=== PATIENT | male | born 1960 | race African-American/Black ===

== ENCOUNTER 2017-03-17 21:08 | Emergency (ER) | payer OTHER ==
[2017-03-17 21:27] VITALS: BP 107/55; PULSE 86; TEMP 97.7; BMI 28.5
--- NOTE | 2017-03-17 22:24 | PDOC ---
History of Present Illness <Herber Franks - Last Filed: 03/17/17 23:58> - General History Source: Patient Exam Limitations: No Limitations - History of Present Illness Initial Comments: 03/17/17 23:02 The patient is a 56 year old male presenting with his , with a significant past medical history of HTN and enlarged prostate, who presents to the emergency department with dehydration and muscle cramps. 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 He describes his cramping as localized in his lower extremities, ranging from mild to moderate, with radiation up and down his leg. He notes that certain movements exacerbates his pain. He denies any kind of trauma. The patient was able to ambulate into the ED. The patient denies chest pain, shortness of breath, headache and dizziness. Denies fever, chills, nausea, vomit, diarrhea and constipation. Allergies: None Past surgical history: Bladder surgery Social history: No alcohol, tobacco or drug use reported <Lars Coy - Last Filed: 03/18/17 01:51> - General Chief Complaint: Heat Exhaustion Stated Complaint: PAIN Time Seen by Provider: 03/17/17 22:09 Past History - Past Medical History Anemia: No Asthma: No Cancer: No Cardiac Disorders: No CVA: No COPD: No CHF: No Dementia: No Diabetes: No GI Disorders: No Disorders: No HTN: Yes Hypercholesterolemia: No Liver Disease: No Suicide Attempt (Hx): No Seizures: No Thyroid Disease: No - Surgical History Abdominal Surgery: No Appendectomy: No Cardiac Surgery: No Cholecystectomy: No Lung Surgery: No Neurologic Surgery: No Orthopedic Surgery: Yes (R RTC REPAIR) - Psycho/Social/Smoking Cessation Hx Anxiety: No Suicidal Ideation: No Smoking Status: Yes Smoking History: Never smoked Have you smoked in the past 12 months: No Number of Cigarettes Smoked Daily: 0 Information on smoking cessation initiated: No Hx Alcohol Use: No Drug/Substance Use Hx: No Substance Use Type: None Hx Substance Use Treatment: Yes (COCAINE/MARIJUANA MANY YRS AGO) <Herber Franks - Last Filed: 03/17/17 23:58> <Lars Coy - Last Filed: 03/18/17 01:51> - Past Medical History Allergies/Adverse Reactions: Allergies Allergy/AdvReac Type Severity Reaction Status Date / Time No Known Drug Allergies Allergy Verified 08/24/16 10:18 Home Medications: Ambulatory Orders Lisinopril [Prinivil -] 20 mg PO DAILY 03/07/13 Cyclobenzaprine HCl [Flexeril -] 10 mg PO TID PRN #15 tablet 08/24/16 Naproxen [Naprosyn -] 500 mg PO BID #14 tablet 08/24/16 Tamsulosin HCl [Flomax] 0.4 mg PO DAILY 08/24/16 Review of Systems - Review of Systems Able to Perform ROS?: Yes Comments:: 03/17/17 23:02 CONSTITUTIONAL: (+) Dehydration. No fever, no chills, no fatigue EYES: No visual changes ENT: No ear pain, no sore throat CARDIOVASCULAR: No chest pain, no palpitations RESPIRATORY: No cough, no SOB GI: No abdominal pain, no nausea, no vomiting, no constipation, no diarrhea GENITOURINARY: No dysuria, no frequency, no hematuria MUSKULOSKELETAL: (+) Muscle cramps. No backpain, no joint pain, no myalgias SKIN: No rash NEURO: No headache <Lars Coy - Last Filed: 03/18/17 01:51> *Physical Exam - Vital Signs Last Vital Signs Temp Pulse Resp BP Pulse Ox 97.7 F 86 18 107/55 100 03/17/17 21:23 03/17/17 21:23 03/17/17 21:23 03/17/17 21:23 03/17/17 21:23 <Herber Franks - Last Filed: 03/17/17 23:58> - Vital Signs Last Vital Signs Temp Pulse Resp BP Pulse Ox 97.7 F 86 18 107/55 100 03/17/17 21:23 03/17/17 21:23 03/17/17 21:23 03/17/17 21:23 03/17/17 21:23 - Physical Exam Comments: 03/18/17 01:50 CONSTITUTIONAL: Well-appearing; well-nourished; in no apparent distress HEAD: Normocephalic; atraumatic EYES: PERRL; EOM intact ENMT: External appears normal; normal oropharynx NECK: Supple; non-tender; no cervical lymphadenopathy CARD: Normal S1, S2; no murmurs, rubs, or gallops RESP: Normal chest excursion with respiration; breath sounds clear and equal bilaterally; no wheezes, rhonchi, or rales ABD: Soft, non-distended; non-tender; no palpable organomegaly, no palpable hernias EXT: Normal ROM in all four extremities; non-tender to palpation; distal pulses intact SKIN: Warm, dry, no rash NEURO: No focal neurological deficiencies. <Lars Coy - Last Filed: 03/18/17 01:51> ED Treatment Course - LABORATORY CBC & Chemistry Diagram: 03/17/17 22:40 03/17/17 22:40 <Herber Franks - Last Filed: 03/17/17 23:58> - LABORATORY CBC & Chemistry Diagram: 03/17/17 22:40 03/17/17 22:40 <Lars Coy - Last Filed: 03/18/17 01:51> Medical Decision Making - Medical Decision Making 03/17/17 22:18 Patient is a 56 y/o male with hx/o htn and bph who presents with gen. weakness after working outside in the heat for the past 2 days. pt also c/o lower extr cramping for 2 days. in the ED, patient is awake and alert, nontoxic-appearing , afebrile and hemodynamically stable. I suspect heat exhaustion. Will aggressively hydrate, we'll obtain CBC/CMP/magnesium/UA. Will reassess. 03/17/17 23:58 Patient reassessed. Patient reports clinical improvement. CBC is within normal limit. CMP reveals mildly elevated creatinine at 1.6. Urinalysis within normal limit. Will discharge with follow-up for reevaluation of elevated creatinine with primary care physician. <Herber Franks - Last Filed: 03/17/17 23:58> *DC/Admit/Observation/Transfer - Attestations Physician Attestion: 03/17/17 23:52 The documentation was prepared by the scribe under my direct supervision. I have reviewed the documentation which correctly represents the findings, medical decision-making and critical action taken by me. <Herber Franks - Last Filed: 03/17/17 23:58> - Attestations Scribe Attestion: 03/17/17 23:03 Documentation prepared by Lars Coy, acting as medical research associate for Herber Franks MD <Lars Coy - Last Filed: 03/18/17 01:51> Diagnosis at time of Disposition: Weakness, Dehydration, Leg cramping - Discharge Dispostion Disposition: HOME Condition at time of disposition: Stable - Referrals Referrals: Duglas Russell MD [Primary Care Provider] - - Patient Instructions Printed Discharge Instructions: DI for Dehydration -- Adult
[2017-03-17] MEDS ORDERED: SODIUM CHLORIDE 1,000 ML IV STA (22:28)
[2017-03-17 22:53] LABS: URINE APPEARANCE CLEAR; URINE BILIRUBIN NEGATIVE (NEGATIVE); URINE BLOOD NEGATIVE (NEGATIVE); URINE COLOR STRAW; URINE GLUCOSE (UA) NEGATIVE (NEGATIVE); URINE KETONE NEGATIVE (NEGATIVE); URINE LEUK ESTERASE NEGATIVE (NEGATIVE); URINE NITRITE NEGATIVE (NEGATIVE); URINE PROTEIN NEGATIVE (NEGATIVE); URINE UROBILINOGEN NEGATIVE E.U./dl (0.2-1.0)
[2017-03-17 22:59] LABS: BASOPHIL 0.7 % (0-2.0); EOSINOPHIL 1.9 % (0-4.5); MCH 30.7 pg (25.7-33.7); MCHC 34.1 g/dl (32.0-35.9); MEAN PLT VOLUME 7.8 fl (7.5-11.1); NEUTROPHILS 43.5 % (42.8-82.8); PLATELET COUNT 226 K/MM3 (134-434); RDW 15.7 % (11.9-15.9); WHITE BLOOD COUNT 5.9 K/mm3 (4.0-10.0)
[2017-03-17 23:17] LABS: ALBUMIN 4.1 g/dl (3.4-5.0); BILIRUBIN,TOTAL 1.6 mg/dL (0.2-1.0); CALCIUM 8.8 mg/dL (8.5-10.1); COCKROFT - GAULT 71.1; CREATININE 1.6 mg/dL (0.7-1.3); MAGNESIUM 2.4 mg/dL (1.8-2.4); TOT PROT 6.9 g/dl (6.4-8.2)
== END 2017-03-18 00:05 | disposition home or self-care (01) ==
LOC: SUPCPDRO 21:08 → JER 21:08
PROC: 3E0337Z Introduction of Electrolytic and Water Balance Substance into Peripheral Vein, Percutaneous Approach (ICD-10-PCS; principal; 2017-03-17)
DX: E86.0 Dehydration (principal); T67.5XXA Heat exhaustion, unspecified, initial encounter
CPT/HCPCS: 36415; 80053; 81003; 83735; 85025; 96360; 99283-25

== ENCOUNTER 2017-04-05 05:57 | Emergency (ER) | payer OTHER ==
[2017-04-05 06:16] VITALS: BMI 26.4
[2017-04-05] MEDS ORDERED: ASPIRIN 81 MG CHEWABLE TABLETS PO ONE (06:24)
--- NOTE | 2017-04-05 06:24 | PDOC ---
History of Present Illness - General History Source: Patient Exam Limitations: No Limitations - History of Present Illness Initial Comments: 04/05/17 06:33 The patient is a 56 year old male with significant past medical history of hypertension who presents to the ED for 1 day of chest pain. Patient reports he developed chest pain yesterday around 5pm. He describes his chest pain as a pressure-like sensation that radiates up the right side of the neck. Denies lightheadedness, diaphoresis, palpitations, SOB, shoulder pain, arm pain, leg swelling, nausea, or vomiting. He also has complaints of a concomitant headache. Patient admits to occasional tobacco use and cocaine use. States his last cocaine use was 2 days ago. The patient denies fever, chills, cough, abdominal pain, and diarrhea. Allergies: NKDA Social History: Occasional tobacco use. Cocaine use. Past Surgical History: Right RTC repair PCP: Dr. Duglas Russell <Emilia Ling - Last Filed: 04/05/17 06:34> - General History Source: Patient <Lars Marques - Last Filed: 04/05/17 19:31> - General Chief Complaint: Chest Pain Stated Complaint: CHEST PAIN Time Seen by Provider: 04/05/17 06:24 Past History <Emilia Ling - Last Filed: 04/05/17 06:34> - Past Medical History Anemia: No Asthma: No Cancer: No Cardiac Disorders: No CVA: No COPD: No CHF: No Dementia: No Diabetes: No GI Disorders: No Disorders: No HTN: Yes Hypercholesterolemia: No Liver Disease: No Suicide Attempt (Hx): No Seizures: No Thyroid Disease: No - Surgical History Abdominal Surgery: No Appendectomy: No Cardiac Surgery: No Cholecystectomy: No Lung Surgery: No Neurologic Surgery: No Orthopedic Surgery: Yes (R RTC REPAIR) - Psycho/Social/Smoking Cessation Hx Anxiety: No Suicidal Ideation: No Smoking Status: Yes Smoking History: Former smoker Have you smoked in the past 12 months: No Number of Cigarettes Smoked Daily: 0 Information on smoking cessation initiated: No Hx Alcohol Use: No Drug/Substance Use Hx: No Substance Use Type: None Hx Substance Use Treatment: Yes (COCAINE/MARIJUANA MANY YRS AGO) <Lars Marques - Last Filed: 04/05/17 19:31> - Past Medical History Allergies/Adverse Reactions: Allergies Allergy/AdvReac Type Severity Reaction Status Date / Time No Known Drug Allergies Allergy Verified 04/05/17 06:13 Home Medications: Ambulatory Orders Lisinopril [Prinivil -] 20 mg PO DAILY 03/07/13 Review of Systems - Review of Systems Able to Perform ROS?: Yes Comments:: 04/05/17 06:33 CONSTITUTIONAL: Absent: fever, no chills, no fatigue EYES: Absent: visual changes ENT: Absent: ear pain, no sore throat CARDIOVASCULAR: +chest pain radiating up the right side of the neck Absent: no palpitations RESPIRATORY: Absent: cough, no SOB GI: Absent: abdominal pain, no nausea, no vomiting, no constipation, no diarrhea GENITOURINARY: Absent: dysuria, no frequency, no hematuria MUSCULOSKELETAL: Absent: back pain, no arthralgia SKIN: Absent: rash NEURO: +headache <Emilia Ling - Last Filed: 04/05/17 06:34> *Physical Exam - Vital Signs Last Vital Signs Temp Pulse Resp BP Pulse Ox 97.9 F 83 18 112/83 100 04/05/17 06:14 04/05/17 06:14 04/05/17 06:14 04/05/17 06:14 04/05/17 06:14 - Physical Exam Comments: 04/05/17 06:33 GENERAL: Well-appearing, well-nourished. No apparent distress. HEENT: Normocephalic, atraumatic. PERRL, EOM intact. CARDIOVASCULAR: Normal S1, S2. Regular rate and rhythm. PULMONARY: Clear to auscultation bilaterally. ABDOMEN: Soft, non-distended, non-tender. EXTREMITIES: Normal ROM in all four extremities. No gross deformities. SKIN: Warm, dry. No rash NEUROLOGICAL: No focal neurological deficits. <Emilia Ling - Last Filed: 04/05/17 06:34> - Vital Signs Last Vital Signs Temp Pulse Resp BP Pulse Ox 97.9 F 83 18 112/83 100 04/05/17 06:14 04/05/17 06:14 04/05/17 06:14 04/05/17 06:14 04/05/17 06:14 <Lars Marques - Last Filed: 04/05/17 19:31> Heart Score/ECG Review - ECG Impressions Comment:: 04/05/17 06:33 NSR @85bpm Cannot r/o anterior infarct, age undetermined Abnormal ECG <Emilia Ling - Last Filed: 04/05/17 06:34> ED Treatment Course - LABORATORY CBC & Chemistry Diagram: 04/05/17 06:34 04/05/17 06:34 <Lars Marques - Last Filed: 04/05/17 19:31> Medical Decision Making - Medical Decision Making 04/05/17 19:31 Dr. Marques: The scribe's documentation has been prepared under my direction and personally reviewed by me in its entirery. I confirm that the note above accurately reflects all work, treatment, procedures, and medical decision making performed by me. <Lars Marques - Last Filed: 04/05/17 19:31> *DC/Admit/Observation/Transfer - Attestations Scribe Attestion: 04/05/17 06:34 Documentation prepared by Emilia Lnig, acting as medical oncologist for Lars Marques MD/. <Emilia Ling - Last Filed: 04/05/17 06:34> - Discharge Dispostion Admit: No <Lars Marques - Last Filed: 04/05/17 19:31> Diagnosis at time of Disposition: Cocaine abuse Chest pain Qualifiers: Chest pain type: unspecified Qualified Code(s): R07.9 - Chest pain, unspecified - Discharge Dispostion Disposition: HOME Condition at time of disposition: Improved - Referrals Referrals: Duglas Russell MD [Primary Care Provider] - - Patient Instructions Printed Discharge Instructions: DI for Atypical Chest Pain Additional Instructions: Stop using cocaine. Return to the emergency department immediately with ANY new, persistent or worsening symptoms including recurrent chest pain, shortness of breath or other concerns. You MUST call and follow up with your doctor tomorrow for further evaluation of your symptoms. Results were discussed with you. Please make sure your doctor reviews the results of your emergency evaluation.
[2017-04-05] MEDS ORDERED: LORAZEPAM CARPU-JECT 2 MG/ML DISP.SYRIN IVPUSH ONE (06:27)
[2017-04-05] MEDS ORDERED: ASPIRIN 81 MG CHEWABLE TABLETS ONE (06:35)
[2017-04-05] MEDS ORDERED: LORAZEPAM CARPU-JECT 2 MG/ML DISP.SYRIN ONE (06:36)
[2017-04-05 06:44] LABS: BASOPHIL 0.3 % (0-2.0); EOSINOPHIL 0.5 % (0-4.5); MCH 30.6 pg (25.7-33.7); MCHC 33.5 g/dl (32.0-35.9); MEAN CELL VOLUME 91.2 fl (80-96); MEAN PLT VOLUME 7.6 fl (7.5-11.1); NEUTROPHILS 77.3 % (42.8-82.8); PLATELET COUNT 234 K/MM3 (134-434); RDW 15.3 % (11.9-15.9); WHITE BLOOD COUNT 8.6 K/mm3 (4.0-10.0)
[2017-04-05 06:57] LABS: INR 1.2 (0.82-1.09); PROTHROMBIN TIME (PATIENT) 13.3 SEC (9.98-11.88)
[2017-04-05 07:21] LABS: ALBUMIN 3.5 g/dl (3.4-5.0); ANION GAP 9 (8-16); BILIRUBIN,TOTAL 1.6 mg/dL (0.2-1.0); CALCIUM 8.5 mg/dL (8.5-10.1); CO2 24 mmol/L (21-32); COCKROFT - GAULT 96.04; CREATININE 1.1 mg/dL (0.7-1.3); GLUCOSE,RANDOM 106 mg/dL (74-106); MAGNESIUM 2.1 mg/dL (1.8-2.4); SGOT/AST 20 U/L (15-37); SGPT/ALT 26 U/L (12-78); TOT PROT 6.2 g/dl (6.4-8.2)
[2017-04-05 07:24] LABS: ALK PHOS 48 U/L (45-117); TROPONIN I < 0.02 ng/ml (0.00-0.05)
--- NOTE | 2017-04-05 08:07 | PDOC ---
*Physical Exam - Vital Signs Last Vital Signs Temp Pulse Resp BP Pulse Ox 98 F 75 17 110/77 100 04/05/17 07:55 04/05/17 07:55 04/05/17 07:55 04/05/17 07:55 04/05/17 07:55 ED Treatment Course - LABORATORY CBC & Chemistry Diagram: 04/05/17 06:34 04/05/17 06:34 - ADDITIONAL ORDERS Additional order review: Laboratory Results 04/05/17 04/05/17 06:34 06:34 INR 1.20 H Sodium 143 Potassium 3.9 Chloride 110 H Carbon Dioxide 24 Anion Gap 9 BUN 11 D Creatinine 1.1 D Creat Clearance w eGFR > 60 Random Glucose 106 Calcium 8.5 Magnesium 2.1 Total Bilirubin 1.6 H AST 20 ALT 26 Alkaline Phosphatase 48 Creatine Kinase 362 H Troponin I < 0.02 Total Protein 6.2 L Albumin 3.5 04/05/17 06:34 RBC 4.38 MCV 91.2 MCHC 33.5 RDW 15.3 MPV 7.6 Neutrophils % 77.3 D Lymphocytes % 15.7 D Monocytes % 6.2 Eosinophils % 0.5 Basophils % 0.3 - Medications Given in the ED: ED Medications Discontinued Medications Generic Name Dose Route Start Last Admin Trade Name Freq PRN Reason Stop Dose Admin Aspirin 162 mg 04/05/17 06:24 04/05/17 06:43 Asa - PO 04/05/17 06:25 162 mg ONCE ONE Administration Lorazepam 1 mg 04/05/17 06:27 04/05/17 06:43 Ativan Injection - IVPUSH 04/05/17 06:28 1 mg ONCE ONE Administration Medical Decision Making - Medical Decision Making 04/05/17 08:06 56y M hx of htn, cocaine use presents with 1 day of pressure like chest pain w/ o saucedo, sob, n/v, diaphoresis, exertional symptoms. pts exam unremarkable pt s/p asa, ativan ekg nonischemic labs/trop neg x 1 will obtain second trop wlil reassess 04/05/17 13:36 pts trop neg x 2 ekg unchanged pt feeling improved will dc the pt with pm dfu return precautions were discussed I discussed the physical exam findings, ancillary test results and final diagnoses with the patient. I answered all of the patient's questions. The patient was satisfied with the care received and felt comfortable with the discharge plan and treatment plan. The patient will call their primary care physician within 24 hours to arrange follow-up and will return to the Emergency Department with any new, persistent or worsening symptoms. *DC/Admit/Observation/Transfer Diagnosis at time of Disposition: Cocaine abuse Chest pain Qualifiers: Chest pain type: unspecified Qualified Code(s): R07.9 - Chest pain, unspecified - Discharge Dispostion Disposition: HOME Condition at time of disposition: Improved Admit: No - Referrals Referrals: Duglas Russell MD [Primary Care Provider] - - Patient Instructions Printed Discharge Instructions: DI for Atypical Chest Pain Additional Instructions: Stop using cocaine. Return to the emergency department immediately with ANY new, persistent or worsening symptoms including recurrent chest pain, shortness of breath or other concerns. You MUST call and follow up with your doctor tomorrow for further evaluation of your symptoms. Results were discussed with you. Please make sure your doctor reviews the results of your emergency evaluation. - Post Discharge Activity
--- NOTE | 2017-04-05 11:30 | EKG ---
Test Reason : Blood Pressure : / mmHG Vent. Rate : 085 BPM Atrial Rate : 085 BPM P-R Int : 174 ms QRS Dur : 080 ms QT Int : 368 ms P-R-T Axes : 051 014 029 degrees QTc Int : 437 ms NORMAL SINUS RHYTHM CANNOT RULE OUT ANTERIOR INFARCT , AGE UNDETERMINED ABNORMAL ECG WHEN COMPARED WITH ECG OF 20-MAR-2015 18:55, NO SIGNIFICANT CHANGE WAS FOUND Confirmed by MAXIMILIANO LAWLER, MONALISA ([id number]) on 04/05/2017 11:30:06 AM Referred By: Confirmed By:MONALISA VIERA MD
[2017-04-05 12:30] LABS: TROPONIN I < 0.02 ng/ml (0.00-0.05)
[2017-04-05 14:19] VITALS: BP 119/71; PULSE 80; TEMP 98.2
--- NOTE | 2017-04-06 10:35 | EKG ---
Test Reason : Blood Pressure : / mmHG Vent. Rate : 070 BPM Atrial Rate : 070 BPM P-R Int : 178 ms QRS Dur : 088 ms QT Int : 402 ms P-R-T Axes : 055 030 036 degrees QTc Int : 434 ms NORMAL SINUS RHYTHM NORMAL ECG WHEN COMPARED WITH ECG OF 05-APR-2017 06:09, NO SIGNIFICANT CHANGE WAS FOUND Confirmed by ARLINE BOYER MD ([id number]) on 04/06/2017 10:34:40 AM Referred By: Confirmed By:ARLINE BOYER MD
== END 2017-04-05 14:19 | disposition home or self-care (01) ==
LOC: JER 05:57
PROC: 3E033NZ Introduction of Analgesics, Hypnotics, Sedatives into Peripheral Vein, Percutaneous Approach (ICD-10-PCS; principal; 2017-04-05)
DX: F14.10 Cocaine abuse, uncomplicated (principal); R07.89 Other chest pain
CPT/HCPCS: 36415; 71010-TC; 80053; 82550; 82553; 83735; 84484; 85025; 85610; 93005; 93010; 96374; 99285-25

== ENCOUNTER 2017-08-17 19:02 | Emergency (ER) | payer OTHER ==
[2017-08-17 19:22] VITALS: BP 128/90; PULSE 76; TEMP 97.9; BMI 28.5
[2017-08-17] MEDS ORDERED: IBUPROFEN 600 MG TABLET (FP) PO ONE ×2 (20:54→21:01)
--- NOTE | 2017-08-17 20:55 | PDOC ---
History of Present Illness - General Chief Complaint: Injury Stated Complaint: HAND INJURY Time Seen by Provider: 08/17/17 20:47 History Source: Patient Exam Limitations: No Limitations - History of Present Illness Initial Comments: 08/17/17 22:18 My chief complaint: Knee over right fourth finger area History of present illness: He is a 56-year-old male with a history of hypertension here today after patient's right hand was twisted quickly using a drill at work today. Patient reports that he feels pain in his right fourth finger that radiates up his right hand. Patient denies any numbness of hand patient denies any other pain. Patient has slight deformity of his right fourth MCP joint noted. 08/17/17 22:23 Occurred: reports: this afternoon Severity: reports: moderate (left hand ) Pain Location: reports: upper extremity (left hand over 4th mcp jt ) Method of Injury: Yes: other (left hand twisted quickly when using a drill at work today ) Modifying Factors: improves with: None Loss of Consciousness: no loss of consciousness Associated Symptoms (Fall): other (pain over left 4th mcp jt with decreased range of motion of joint) Past History - Past Medical History Allergies/Adverse Reactions: Allergies Allergy/AdvReac Type Severity Reaction Status Date / Time No Known Drug Allergies Allergy Verified 08/17/17 19:19 Home Medications: Ambulatory Orders Lisinopril [Prinivil -] 20 mg PO DAILY 03/07/13 Anemia: No Asthma: No Cancer: No Cardiac Disorders: No CVA: No COPD: No CHF: No Dementia: No Diabetes: No GI Disorders: No Disorders: No HTN: Yes Hypercholesterolemia: No Liver Disease: No Seizures: No Thyroid Disease: No - Surgical History Abdominal Surgery: No Appendectomy: No Cardiac Surgery: No Cholecystectomy: No Lung Surgery: No Neurologic Surgery: No Orthopedic Surgery: Yes (R RTC REPAIR) - Suicide/Smoking/Psychosocial Hx Smoking Status: Yes Smoking History: Former smoker Have you smoked in the past 12 months: No Number of Cigarettes Smoked Daily: 0 Information on smoking cessation initiated: No Hx Alcohol Use: No Drug/Substance Use Hx: No Substance Use Type: None Hx Substance Use Treatment: Yes (COCAINE/MARIJUANA MANY YRS AGO) Trauma Specific PMHX - Complaint Specific PMHX Back Injury: Yes Neck Injury: Yes Review of Systems - Review of Systems Able to Perform ROS?: Yes Constitutional: No: Symptoms Reported HEENTM: No: Symptoms Reported Respiratory: No: Symptoms reported Cardiac (ROS): No: Symptoms Reported ABD/GI: No: Symptoms Reported Musculoskeletal: Yes: Joint Pain (pain rt. 4th mcp jt., decreased range of motion rt. mcp jt). No: Joint Swelling Integumentary: No: Symptoms Reported Neurological: No: Symptoms reported *Physical Exam - Vital Signs Last Vital Signs Temp Pulse Resp BP Pulse Ox 97.9 F 76 16 128/90 08/17/17 19:21 08/17/17 19:21 08/17/17 19:21 08/17/17 19:21 - Physical Exam General Appearance: Yes: Appropriately Dressed Comments:: 08/17/17 22:15 radial pulse rt. 4 + Extremity: positive: Normal Capillary Refill, Tender (rt. 4th mcp jt ). negative: Normal Inspection (4th mcp jt deformity noted), Normal Range of Motion (rt. 4th mcp jt slightly decreased, full range of motion rt. 4th pip, dip jt and all other joints rt. hand ) Integumentary: positive: Normal Color. negative: Erythema, Swelling, Bruising Neurologic: positive: Normal Response, Respond to painful stimul (rt. hand and all digits ), Responsive. negative: Numbness, Sensory Deficit (rt hand & all digits) Procedures - Consent Consent obtained: From Patient - Splinting Splint Location: Right: Hand Pre-Proc Neuro Vasc Exam: normal Hand-Made Type: orthoglass Splint Type: Yes: Wrist (rt. hand ) Post-Proc Neuro Vasc Exam: normal Donovan Bandage: 3" Complications: No Post splint xray: No Medical Decision Making - Medical Decision Making 08/17/17 22:18 08/17/17 22:24 He is a 56-year-old male with a history of hypertension here today after patient 's right hand was twisted quickly using a drill at work today. Patient reports that he feels pain in his right fourth finger that radiates up his right hand. Patient denies any numbness of hand patient denies any other pain. Patient has slight deformity of his right fourth MCP joint noted. r/o fracture rt. 4th metacarpal jt PLAN: xray right hand fracture of rt. 4th mcp jt ibuprofen 600 mg po now orthoglass splint rt. hand applied follow up with ortho 08/17/17 22:26 *DC/Admit/Observation/Transfer Diagnosis at time of Disposition: Fracture of metacarpal bone of right hand - Discharge Dispostion Disposition: HOME Condition at time of disposition: Stable - Referrals Referrals: Balta Rodriguez MD [Staff Physician] - Duglas Russell MD [Primary Care Provider] - - Patient Instructions Additional Instructions: Apply ice to right hand every hour or 2 for 15 minutes on top of Ortho-Glass splint Follow up with orthopedist tomorrow Return to emergency room if any numbness of your right hand or swelling or any new symptoms develop Take ibuprofen as needed as directed by final dressing cutter Patient voiced understanding of discharge instructions and all questions were answered
== END 2017-08-17 22:23 | disposition home or self-care (01) ==
LOC: JERFT 19:02
PROC: 2W3CX1Z Immobilization of Right Lower Arm using Splint (ICD-10-PCS; principal; 2017-08-17)
DX: S62.394A Other fracture of fourth metacarpal bone, right hand, initial encounter for closed fracture (principal); X50.1XXA Overexertion from prolonged static or awkward postures, initial encounter; Y93.H3 Activity, building and construction; Y92.69 Other specified industrial and construction area as the place of occurrence of the external cause; Y99.0 Civilian activity done for income or pay; I10 Essential (primary) hypertension
CPT/HCPCS: 73130-TC-RT; 99281-25

== ENCOUNTER 2018-01-07 15:58 | Emergency (ER) | payer OTHER ==
[2018-01-07 16:12] VITALS: PULSE 88; TEMP 97.5; BMI 28.5
[2018-01-07] MEDS ORDERED: ALBUTEROL SO4 2.5/IPRATROPIUM 0.5 INH SOL 3 ML VIAL.NEB. NEB ONE ×2 (17:10→17:14)
--- NOTE | 2018-01-07 17:10 | PDOC ---
History of Present Illness - General Chief Complaint: Respiratory Stated Complaint: COUGH Time Seen by Provider: 01/07/18 16:29 - History of Present Illness Initial Comments: 01/07/18 16:54 CHIEF COMPLAINT: cough, congestion HISTORY OF PRESENT ILLNESS: 57 yo M with hx of HTN presents to [facility] with chest tightness x 3 days. Patient reports that he feels like he has "a lot of stuff in my lungs" and has been coughing but unproductively. He denies any fever, chills, nausea, vomiting, diarrhea. No recent travel or sick contacts. PAST MEDICAL HISTORY: Denies past medical history FAMILY HISTORY: Denies SOCIAL HISTORY: Denies tobacco, alcohol, illicit drug use. SURGICAL HISTORY: Denies ALLERGIES: No known drug allergies REVIEW OF SYSTEMS General/Constitutional: Denies fever or chills. Denies weakness, weight change. HEENT: Denies change in vision. Denies ear pain or discharge. Denies sore throat. Cardiovascular: Denies chest pain or shortness of breath. Respiratory: Dry cough. Gastrointestinal: Denies nausea, vomiting, diarrhea or constipation. Denies rectal bleeding. Genitourinary: Denies dysuria, frequency, or change in urination. Musculoskeletal: Denies joint or muscle swelling or pain. Denies neck or back pain. Skin and breasts: Denies rash or easy bruising. Neurologic: Denies headache, vertigo, loss of consciousness, or loss of sensation. PHYSICAL EXAM General Appearance: Well-appearing, appropriately dressed. No apparent distress. HEENT: EOMI, PERRLA. No conjunctival pallor. No photophobia, scleral icterus. Respiratory/Chest: Dry cough, mild expiratory wheeze to R lower lobe. No shortness of breath, chest tenderness, respiratory distress, accessory muscle use. Cardiovascular: RRR. S1, S2. Gastrointestinal/Abdominal: Normal bowel sounds. Abdomen soft, non-distended. No tenderness or rebound tenderness. No organomegaly, pulsatile mass, guarding , hernia, hepatomegaly, splenomegaly. Musculoskeletal/Extremities: Normal inspection. FROM of all extremities, normal capillary refill. Pelvis Stable. No CVA tenderness. No tenderness to extremities, pedal edema, swelling, erythema or deformity. Integumentary: Appropriate color, dry, warm. 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 Fully oriented, alert. Appropriate mood/affect. Motor strength 5/5. No appreciable EOM palsy, facial droop or sensory deficit. Past History - Past Medical History Allergies/Adverse Reactions: Allergies Allergy/AdvReac Type Severity Reaction Status Date / Time No Known Drug Allergies Allergy Verified 01/07/18 16:12 Home Medications: Ambulatory Orders Lisinopril [Prinivil -] 20 mg PO DAILY 03/07/13 Albuterol Sulfate Inhaler - [Ventolin HFA Inhaler -] 1 - 2 inh PO Q4H PRN #1 inhaler 01/07/18 Azithromycin [Zithromax 250mg Tablets -] 250 mg PO ASDIR #6 tablet 01/07/18 Benzonatate [Tessalon Pearls -] 100 mg PO TID PRN #21 capsule 01/07/18 Anemia: No Asthma: No Cancer: No Cardiac Disorders: No CVA: No COPD: No CHF: No Dementia: No Diabetes: No GI Disorders: No Disorders: No HTN: Yes Hypercholesterolemia: No Liver Disease: No Seizures: No Thyroid Disease: No Other medical history: vertigo - Surgical History Abdominal Surgery: No Appendectomy: No Cardiac Surgery: No Cholecystectomy: No Lung Surgery: No Neurologic Surgery: No Orthopedic Surgery: Yes (R RTC REPAIR) - Suicide/Smoking/Psychosocial Hx Smoking Status: Yes Smoking History: Never smoked Have you smoked in the past 12 months: No Number of Cigarettes Smoked Daily: 0 Information on smoking cessation initiated: No Hx Alcohol Use: No Drug/Substance Use Hx: No Substance Use Type: None Hx Substance Use Treatment: Yes (COCAINE/MARIJUANA MANY YRS AGO) *Physical Exam - Vital Signs Last Vital Signs Temp Pulse Resp BP Pulse Ox 97.5 F L 88 18 98/61 100 01/07/18 16:09 01/07/18 16:09 01/07/18 16:09 01/07/18 16:09 01/07/18 16:09 ED Treatment Course - RADIOLOGY Radiology Studies Ordered: Category Date Time Status CHEST PA & LAT [RAD] Stat Radiology 01/07/18 16:50 Ordered *DC/Admit/Observation/Transfer Diagnosis at time of Disposition: Bronchitis - Discharge Dispostion Disposition: HOME Condition at time of disposition: Stable Admit: No - Prescriptions Prescriptions: Albuterol Sulfate Inhaler - [Ventolin HFA Inhaler -] 1 - 2 inh PO Q4H PRN #1 inhaler PRN Reason: Short Of Breath/Wheezing Azithromycin [Zithromax 250mg Tablets -] 250 mg PO ASDIR #6 tablet Benzonatate [Tessalon Pearls -] 100 mg PO TID PRN #21 capsule PRN Reason: Cough - Referrals Referrals: Duglas Russell MD [Primary Care Provider] - - Patient Instructions Printed Discharge Instructions: DI for Acute Bronchitis Additional Instructions: Please take medications as prescribed; complete the entire course of antibiotics even if your symptoms improve. If you develop any chest pain, palpitations, fever, chills, vomiting, or diarrhea, or any new or worsening symptoms, please return to the ER. - Post Discharge Activity
[2018-01-07 17:41] VITALS: BP 120/63
== END 2018-01-07 17:44 | disposition home or self-care (01) ==
LOC: JERFT 15:58
PROC: 3E0F7GC Introduction of Other Therapeutic Substance into Respiratory Tract, Via Natural or Artificial Opening (ICD-10-PCS; principal; 2018-01-07)
DX: J40 Bronchitis, not specified as acute or chronic (principal); I10 Essential (primary) hypertension
CPT/HCPCS: 71046-TC-FY; 94640; 99281-25

== ENCOUNTER 2018-04-03 02:23 | Emergency (ER) | payer OTHER ==
[2018-04-03 02:54] VITALS: BP 135/84; PULSE 67; TEMP 98.1; BMI 28.5
[2018-04-03] MEDS ORDERED: diazePAM 5 MG TABLET PO ONE (03:25)
[2018-04-03] MEDS ORDERED: KETOROLAC TROMETHAMINE 30 MG/1 ML VIAL IM ONE (03:25)
[2018-04-03] MEDS ORDERED: diazePAM 5 MG TABLET ONE (03:30)
[2018-04-03] MEDS ORDERED: KETOROLAC TROMETHAMINE 30 MG/1 ML VIAL ONE (03:30)
--- NOTE | 2018-04-03 04:29 | PDOC ---
History of Present Illness - General History Source: Patient Exam Limitations: No Limitations - History of Present Illness Initial Comments: 04/03/18 04:34 The patient is a 57 year old male with a significant PMH hypertension and cocaine use who presents to the emergency department with severe lower back pain. The patient reports that his back pain is constant and worsened with movement and deep breath. The patient states that his pain feels more muscular . 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 He denies any injury that he can recall. The patient reports that he was seen by his doctor yesterday by which he was given pain medication and an at home cream. The patient reports that he did not experience much relief when he used them. The patient denies any numbness, weakness, or tingling sensation in his extremities. He denies fever, chills, nausea, vomit, diarrhea ,constipation or urinary symptoms. He denies chest pain, shortness of breath, headache and dizziness. He denies any weight loss, travel, smoking or alcohol intake. The patient denies any other complaints. <Jessica Madrid - Last Filed: 04/03/18 04:34> <Joe Jean - Last Filed: 04/03/18 05:30> - General Chief Complaint: Back Pain Stated Complaint: BACK PAIN Time Seen by Provider: 04/03/18 03:14 Past History <Jessica Madrid - Last Filed: 04/03/18 04:34> - Past Medical History Anemia: No Asthma: No Cancer: No Cardiac Disorders: No CVA: No COPD: No CHF: No Dementia: No Diabetes: No GI Disorders: No Disorders: No HTN: Yes Hypercholesterolemia: No Liver Disease: No Seizures: No Thyroid Disease: No - Surgical History Abdominal Surgery: No Appendectomy: No Cardiac Surgery: No Cholecystectomy: No Lung Surgery: No Neurologic Surgery: No Orthopedic Surgery: Yes (R RTC REPAIR) - Suicide/Smoking/Psychosocial Hx Smoking Status: Yes Smoking History: Never smoked Have you smoked in the past 12 months: No Number of Cigarettes Smoked Daily: 0 Information on smoking cessation initiated: No Hx Alcohol Use: No Drug/Substance Use Hx: No Substance Use Type: None Hx Substance Use Treatment: Yes (COCAINE/MARIJUANA MANY YRS AGO) <Joe Jean - Last Filed: 04/03/18 05:30> - Past Medical History Allergies/Adverse Reactions: Allergies Allergy/AdvReac Type Severity Reaction Status Date / Time No Known Drug Allergies Allergy Verified 01/07/18 16:12 Home Medications: Ambulatory Orders Lisinopril [Prinivil -] 20 mg PO DAILY 03/07/13 Albuterol Sulfate Inhaler - [Ventolin HFA Inhaler -] 1 - 2 inh PO Q4H PRN #1 inhaler 01/07/18 Azithromycin [Zithromax 250mg Tablets -] 250 mg PO ASDIR #6 tablet 01/07/18 Benzonatate [Tessalon Pearls -] 100 mg PO TID PRN #21 capsule 01/07/18 Diazepam [Valium] 5 mg PO DAILY #2 tablet MDD 1 04/03/18 Review of Systems - Review of Systems Able to Perform ROS?: Yes Comments:: 04/03/18 04:34 Constitutional: No recent illness; no fever ENT: No sore throat Cardiovascular: No palpitations; no chest pain Pulmonary: No cough; no trouble breathing Gastrointestinal: No nausea; no vomiting; no diarrhea Genitourinary: No urinary problems; no hematuria Skin: No rash Lymph system: No swollen glands Musculoskeletal: (+)back pain. No joint swelling Neurological: No weakness; No numbness; No Headache; no vertigo; no lightheadedness Psychiatric:No anxiety; no depression ROS: A complete review of 10 out of 10 review of systems is taken and is negative apart from what is previously mentioned below and in the HPI. <Jessica Madrid - Last Filed: 04/03/18 04:34> *Physical Exam - Vital Signs Last Vital Signs Temp Pulse Resp BP Pulse Ox 98.1 F 67 19 135/84 98 04/03/18 02:43 04/03/18 02:43 04/03/18 02:43 04/03/18 02:43 04/03/18 02:43 - Physical Exam Comments: 04/03/18 04:34 Vitals: Triage vital signs reviewed General Appearance: No acute distress, well nourished, well developed Neck: Supple; No nuchal rigidity Chest Wall: Nontender Cardiac: Regular rate and rhythm, no murmurs, no rubs, no gallops Lungs: Clear to auscultation bilateral, good air movement bilaterally Abdomen: Soft, nondistended, normal bowel sounds, nontender to palpation Extremities: (+) Reproducible left upper back pain.Full range of motion to all extremities, no cyanosis, clubbing, or edema Skin: Warm and dry, no rashes or lesions, no rash, no petechiae Neuro: AOX3; Cranial Nerves 2-12 grossly intact, Strength intact to all extremities, Sensation intact to all extremities, gait normal Psych: Normal mood, normal affect <Jessica Madrid - Last Filed: 04/03/18 04:34> - Vital Signs Last Vital Signs Temp Pulse Resp BP Pulse Ox 98.1 F 67 19 135/84 98 04/03/18 02:43 04/03/18 02:43 04/03/18 02:43 04/03/18 02:43 04/03/18 02:43 <Joe Jean - Last Filed: 04/03/18 05:30> ED Treatment Course - Medications Given in the ED: ED Medications Discontinued Medications Generic Name Dose Route Start Last Admin Trade Name Freq PRN Reason Stop Dose Admin Diazepam 5 mg 04/03/18 03:25 04/03/18 03:39 Valium - PO 04/03/18 03:26 5 mg ONCE ONE Administration Ketorolac Tromethamine 30 mg 04/03/18 03:25 04/03/18 03:39 Toradol Injection - IM 04/03/18 03:26 30 mg ONCE ONE Administration <Jessica Madrid - Last Filed: 04/03/18 04:34> - RADIOLOGY Radiology Studies Ordered: Category Date Time Status CHEST PA & LAT [RAD] Stat Radiology 04/03/18 03:25 Ordered - Medications Given in the ED: ED Medications Discontinued Medications Generic Name Dose Route Start Last Admin Trade Name Freq PRN Reason Stop Dose Admin Diazepam 5 mg 04/03/18 03:25 04/03/18 03:39 Valium - PO 04/03/18 03:26 5 mg ONCE ONE Administration Ketorolac Tromethamine 30 mg 04/03/18 03:25 04/03/18 03:39 Toradol Injection - IM 04/03/18 03:26 30 mg ONCE ONE Administration <Joe Jean - Last Filed: 04/03/18 05:30> Medical Decision Making - Medical Decision Making 04/03/18 04:35 The patient is a 57 year old male with a significant PMH hypertension and cocaine use who presents to the emergency department with severe lower back pain. The patient reports that his back pain is constant and worsened with movement and deep breath. The patient states that his pain feels more muscular . 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 He denies any injury that he can recall. The patient reports that he was seen by his doctor yesterday by which he was given pain medication and an at home cream. The patient reports that he did not experience much relief when he used them. The patient denies any numbness, weakness, or tingling sensation in his extremities. He denies fever, chills, nausea, vomit, diarrhea ,constipation or urinary symptoms. He denies chest pain, shortness of breath, headache and dizziness. He denies any weight loss, travel, smoking or alcohol intake. The patient denies any other complaints. <Jessica Madrid - Last Filed: 04/03/18 04:34> - Medical Decision Making Reevaluation: 5:30 AM patient feels better after pain medication. No acute findings on x-ray. History examination most consistent with muscular skeletal upper back discomfort. No PE DVT risk factors. We'll discharge home on short course of Valium patient ready has ibuprofen at home patient recommended follow-up with his doctor in 1-2 days. Return to the emergency department for any severe worsening symptoms or for any concerns Findings, need for follow-up and strict return instructions discussed with patient. <Joe Jean - Last Filed: 04/03/18 05:30> *DC/Admit/Observation/Transfer - Attestations Scribe Attestion: 04/03/18 04:35 Documentation prepared by Jessica Madrid, acting as certified court/medical interpreter for Joe Jean MD. <Jessica Madrid - Last Filed: 04/03/18 04:34> - Discharge Dispostion Decision to Admit order: No <Joe Jean - Last Filed: 04/03/18 05:30> Diagnosis at time of Disposition: Back pain Qualifiers: Back pain location: thoracic back pain Chronicity: acute Back pain laterality: left Qualified Code(s): M54.6 - Pain in thoracic spine - Discharge Dispostion Disposition: HOME Condition at time of disposition: Fair - Referrals Referrals: Duglas Russell MD [Primary Care Provider] - - Patient Instructions Printed Discharge Instructions: DI for Back Strain or Sprain Additional Instructions: Ice affected area 20 minutes on 20 minutes off. Continue to take ibuprofen as prescribed. Follow-up with her doctor tomorrow. Valium as prescribed only at night for 2 nights. Return to ED for any chest pain severe worsening symptoms or for any concerns. - Post Discharge Activity Forms/Work/School Notes: Back to Work
== END 2018-04-03 05:41 | disposition home or self-care (01) ==
LOC: JER 02:23
PROC: 3E0233Z Introduction of Anti-inflammatory into Muscle, Percutaneous Approach (ICD-10-PCS; principal; 2018-04-03)
DX: M54.6 Pain in thoracic spine (principal); I10 Essential (primary) hypertension; F14.10 Cocaine abuse, uncomplicated
CPT/HCPCS: 71046-TC-FY; 96372; 99281-25

== ENCOUNTER 2018-10-21 10:23 | Inpatient (IN) | payer OTHER ==
[2018-10-21 10:51] VITALS: BMI 30.1
--- NOTE | 2018-10-21 10:59 | HP ---
CIWA Score Nausea/Vomitin Muscle Tremors: 2 Anxiety: 2 Agitation: 2 Paroxysmal Sweats: 1-Minimal Palms Moist Orientation: 0-Oriented Tacttile Disturbances: 1-Very Mild Itch/Numbness Auditory Disturbances: 1-Very Mild Visual Disturbances: 0-None Headache: 2-Mild CIWA-Ar Total Score: 13 - Admission Criteria OASAS Guidelines: Admission for Medically Managed Detox: Requires at least one of the followin. CIWA greater than 12 2. Seizures within the past 24 hours 3. Delirium tremens within the past 24 hours 4. Hallucinations within the past 24 hours 5. Acute intervention needed for co occurring medical disorder 6. Acute intervention needed for co occurring psychiatric disorder 7. Severe withdrawal that cannot be handled at a lower level of care (continued vomiting, continued diarrhea, abnormal vital signs) requiring intravenous medication and/or fluids 8. Patient presents the following: CIWA greater than 12 Admission Criteria Met: Admission criteria met Admission ROS BHS - HPI Chief Complaint: i need help to stop drinking alcohol and cocaine Allergies/Adverse Reactions: Allergies Allergy/AdvReac Type Severity Reaction Status Date / Time No Known Drug Allergies Allergy Verified 01/07/18 16:12 History of Present Illness: this 57 years old male with alcohol and crack and cocaine,seeking detox, withdrawal symptom,last detox 30 years ago at [facility] history of hypertension non compliance need help to stop drinking and using cocaine longest sobriety 2 years plan for inpatient rehab Exam Limitations: No Limitations - Ebola screening Have you traveled outside of the country in the last 21 days: No Have you been sick,other than usual withdrawal symptoms: No - Review of Systems Constitutional: Loss of Appetite, Malaise, Night Sweats, Changes in sleep, Weakness EENT: reports: Nose Congestion Respiratory: reports: No Symptoms reported Cardiac: reports: Palpitations GI: reports: Nausea, Poor Appetite, Indigestion, Abdominal cramping : reports: No Symptoms Reported, Other (bph has surgery in 2016) Musculoskeletal: reports: Back Pain, Muscle Pain Integumentary: reports: Dryness Neuro: reports: Headache, Tremors Endocrine: reports: No Symptoms Reported Hematology: reports: No Symptoms Reported Psychiatric: reports: No Sypmtoms Reported, Judgement Intact, Mood/Affect Appropiate, Orientated x3 Patient History - Patient Medical History Hx Anemia: No Hx Asthma: No Hx Chronic Obstructive Pulmonary Disease (COPD): No Hx Cancer: No Hx Cardiac Disorders: No Hx Congestive Heart Failure: No Hx Hypertension: Yes (non compliance) Hx Hypercholesterolemia: No Hx Pacemaker: No HX Cerebrovascular Accident: No Hx Seizures: No Hx Dementia: No Hx Diabetes: No Hx Gastrointestinal Disorders: No Hx Liver Disease: No Hx Genitourinary Disorders: No Hx Renal Disease (ESRD): No Hx Thyroid Disease: No Hx Human Immunodeficiency Virus (HIV): No (last 2007 negative) Hx Hepatitis C: No Hx Depression: No Hx Suicide Attempt: No Hx Bipolar Disorder: No Hx Schizophrenia: No Other Medical History: no suicidal,no homicidal - Patient Surgical History Past Surgical History: Yes Hx Neurologic Surgery: No Hx Cataract Extraction: No Hx Cardiac Surgery: No Hx Lung Surgery: No Hx Breast Surgery: No Hx Breast Biopsy: No Hx Abdominal Surgery: No Hx Appendectomy: No Hx Cholecystectomy: No Hx Genitourinary Surgery: Yes (for bph in 2016) Hx Section: No Hx Orthopedic Surgery: No Hx Hysterectomy: No Anesthesia Reaction: No - PPD History Previous Implant?: Yes Documented Results: Negative w/o proof Implanted On Prior [facility] Admission?: No PPD to be Administered?: Yes - Smoking Cessation Smoking history: Never smoked Have you smoked in the past 12 months: No Aproximately how many cigarettes per day: 0 Hx Chewing Tobacco Use: No - Substance & Tx. History Hx Alcohol Use: Yes Hx Substance Use: Yes Substance Use Type: Alcohol, Cocaine Hx Substance Use Treatment: Yes ([facility] 30 years ago) - Substances Abused Alcohol Route: Oral Frequency: Daily Amount used: 2pints of rum/6 packs of 12 ozs of beer Age of first use: 15 Date of Last Use: 10/20/18 Cocaine Route: Smoking Frequency: Daily Amount used: 100$ Age of first use: 20 Date of Last Use: 10/21/18 Family Disease History - Family Disease History Family History: Denies Admission Physical Exam BHS - Vital Signs Vital Signs: Vital Signs - 24 hr 10/21/18 10:50 Temperature 97.3 F L Pulse Rate 100 H Respiratory 18 Rate Blood Pressure 139/100 - Physical General Appearance: Yes: Moderate Distress, Irritable, Sweating, Anxious HEENTM: Yes: Normal ENT Inspection, RG, Pharynx Normal Respiratory: Yes: Lungs Clear, Normal Breath Sounds, No Respiratory Distress Neck: Yes: Within Normal Limits, Supple, Trachea in good position Breast: Yes: Within Normal Limits Cardiology: Yes: Tachycardia Abdominal: Yes: Within Normal Limits, Normal Bowel Sounds, Non Tender, Flat, Soft Genitourinary: Yes: Within Normal Limits Back: Yes: Muscle Spasm Musculoskeletal: Yes: Back pain, Muscle Pain 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, Fully Oriented, Alert, Motor Strength 5/5 Integumentary: Yes: Dry Lymphatic: Yes: Within Normal Limits - Diagnostic (1) Alcohol dependence with uncomplicated withdrawal Current Visit: Yes Status: Acute (2) Cocaine dependence Current Visit: Yes Status: Acute (3) Essential hypertension Current Visit: Yes Status: Acute (4) History of prostate surgery Current Visit: Yes Status: Acute (5) BPH (benign prostatic hyperplasia) Current Visit: Yes Status: Acute Cleared for Admission [facility] - Detox or Rehab [facility] Level of Care: Medically Managed Detox Regimen/Protocol: Librium [facility] Breath Alcohol Content Breath Alcohol Content: 0 Urine Drug Screen - Results Drug Screen Negative: No Urine Drug Screen Results: ISAAC-Cocaine
[2018-10-21] MEDS ORDERED: IBUPROFEN 400 MG TABLET (FP) PO PRN (11:12)
[2018-10-21] MEDS ORDERED: guaiFENesin/D-METHORPHAN HB 10 ML UNIT-DOSE CUPS PO PRN (11:12)
[2018-10-21] MEDS ORDERED: MAGNESIUM HYDROX 2400MG/30ML ORAL SUSPENSION 30 ML CUP PO PRN (11:12)
[2018-10-21] MEDS ORDERED: MAG HYDROX/AL HYDROX/SIMETH 30 ML UNIT-DOSE CUP PO PRN (11:12)
[2018-10-21] MEDS ORDERED: MAGNESIUM CITRATE 300 ML BOTTLE PO PRN (11:12)
[2018-10-21] MEDS ORDERED: ACETAMINOPHEN 325 MG TABLET (FP) PO PRN (11:12)
[2018-10-21] MEDS ORDERED: chlordiazePOXIDE HCL 25 MG CAPSULE PO PRN (11:12)
[2018-10-21] MEDS ORDERED: P-EPHED 60MG/TRIPROLIDI 2.5MG TABLET PO PRN (11:12)
[2018-10-21] MEDS ORDERED: MENTHOL/PHENOL 1 EACH UD MM PRN (11:12)
[2018-10-21] MEDS ORDERED: LOPERAMIDE HCL 2 MG CAPSULE PO PRN (11:12)
[2018-10-21] MEDS ORDERED: hydrOXYzine PAMOATE 50 MG CAPSULE (FP) PO PRN (11:12)
[2018-10-21] MEDS ORDERED: LISINOPRIL 20 MG TABLET (FP) PO ONE (11:25)
[2018-10-21] MEDS ORDERED: PATIENT'S OWN MEDICATION (NON-FORMULARY) (Lisinopril [Prinivil -] 20 MG) PO SCH (11:30)
[2018-10-21] MEDS: chlordiazePOXIDE HCL 25 MG CAPSULE PO SCH ×2 (17:33→22:21)
[2018-10-21 20:27] LABS: URINE APPEARANCE CLEAR; URINE BILIRUBIN NEGATIVE (<2.0 mg/dL); URINE COLOR LTYELLOW; URINE GLUCOSE (UA) NEGATIVE (NEGATIVE); URINE KETONE TRACE (NEGATIVE); URINE LEUK ESTERASE NEGATIVE (NEGATIVE); URINE NITRITE NEGATIVE (NEGATIVE); URINE PROTEIN NEGATIVE (NEGATIVE); URINE UROBILINOGEN NEGATIVE mg/dL (0.2-1.0)
[2018-10-21] MEDS ORDERED: MELATONIN 5 MG TABLETS PO PRN (22:00)
[2018-10-21] MEDS: THIAMINE HCL 100 MG TABLET (FP) PO SCH (22:20)
[2018-10-22] MEDS: chlordiazePOXIDE HCL 25 MG CAPSULE PO SCH ×4 (05:55→22:08)
--- NOTE | 2018-10-22 07:14 | EKG ---
Test Reason : Blood Pressure : / mmHG Vent. Rate : 091 BPM Atrial Rate : 091 BPM P-R Int : 160 ms QRS Dur : 082 ms QT Int : 360 ms P-R-T Axes : 062 020 040 degrees QTc Int : 442 ms NORMAL SINUS RHYTHM NORMAL ECG WHEN COMPARED WITH ECG OF 05-APR-2017 11:17, NO SIGNIFICANT CHANGE WAS FOUND Confirmed by JAVI VICK MD ([id number]) on 10/22/2018 7:13:54 AM Referred By: YOSI MACIAS Confirmed By:JAVI VICK MD
[2018-10-22] MEDS: LISINOPRIL 20 MG TABLET (FP) PO SCH (10:07)
[2018-10-22] MEDS: PRENATAL VITAMINS W/ FOLIC ACID TABLET (FP) PO SCH (10:07)
[2018-10-22 10:53] LABS: HEMATOCRIT 43.8 % (35.4-49); HEMOGLOBIN 14.3 GM/dL (11.7-16.9); MCH 29.9 pg (25.7-33.7); MCHC 32.7 g/dl (32.0-35.9); MEAN CELL VOLUME 91.4 fl (80-96); MEAN PLT VOLUME 7.7 fl (7.5-11.1); PLATELET COUNT 223 K/MM3 (134-434); RBC 4.79 M/mm3 (4.00-5.60); WHITE BLOOD COUNT 3.6 K/mm3 (4.0-10.0)
[2018-10-22 10:58] LABS: ALBUMIN 3.5 g/dl (3.4-5.0); ALK PHOS 53 U/L (45-117); ANION GAP 5 MMOL/L (8-16); BILIRUBIN,TOTAL 0.6 mg/dL (0.2-1); BLOOD UREA NITROGEN 12 mg/dL (7-18); CALCIUM 8.6 mg/dL (8.5-10.1); CHLORIDE 107 mmol/L (98-107); CO2 28 mmol/L (21-32); CREATININE 1.2 mg/dL (0.55-1.3); GLUCOSE,RANDOM 105 mg/dL (74-106); POTASSIUM 4.3 mmol/L (3.5-5.1); SGOT/AST 19 U/L (15-37); SGPT/ALT 30 U/L (13-61); SODIUM 140 mmol/L (136-145); TOT PROT 6.5 g/dl (6.4-8.2)
--- NOTE | 2018-10-22 11:18 | PN ---
S CIWA - CIWA Score Nausea/Vomitin-No Nausea/No Vomiting Muscle Tremors: 4-Moderate,w/Arms Extend Anxiety: 3 Agitation: 3 Paroxysmal Sweats: 3 Orientation: 0-Oriented Tacttile Disturbances: 0-None Auditory Disturbances: 0-None Visual Disturbances: 0-None Headache: 0-None Present CIWA-Ar Total Score: 13 BHS Progress Note (SOAP) Subjective: restless agitation sweats shakes interrupted sleep Objective: 10/22/18 11:17 Vital Signs Temperature 98.1 F 10/22/18 09:06 Pulse Rate 91 H 10/22/18 09:06 Respiratory Rate 18 10/22/18 09:06 Blood Pressure 134/81 10/22/18 09:06 O2 Sat by Pulse Oximetry (%) Laboratory Tests 10/21/18 10/22/18 10/22/18 14:37 07:45 07:45 WBC 3.6 L RBC 4.79 Hgb 14.3 Hct 43.8 MCV 91.4 MCH 29.9 MCHC 32.7 RDW 15.0 Plt Count 223 MPV 7.7 Sodium 140 Potassium 4.3 Chloride 107 Carbon Dioxide 28 Anion Gap 5 L BUN 12 Creatinine 1.2 Creat Clearance w eGFR > 60 Random Glucose 105 Calcium 8.6 Total Bilirubin 0.6 AST 19 ALT 30 Alkaline Phosphatase 53 Total Protein 6.5 Albumin 3.5 Urine Color Ltyellow Urine Appearance Clear Urine pH 5.0 Ur Specific [place] 1.015 Urine Protein Negative Urine Glucose (UA) Negative Urine Ketones Trace H Urine Blood Negative Urine Nitrite Negative Urine Bilirubin Negative Urine Urobilinogen Negative Ur Leukocyte Esterase Negative aaox3 ambulating no acute distress Assessment: 10/22/18 11:18 withdrawal sx Plan: continue detox increase fluids
[2018-10-22] MEDS ORDERED: FLU VACCINE QUAD 60 MCG/0.5 ML (MDV 18-19) IM ONE (12:00)
[2018-10-22] MEDS: THIAMINE HCL 100 MG TABLET (FP) PO SCH (22:08)
[2018-10-23] MEDS: chlordiazePOXIDE HCL 25 MG CAPSULE PO SCH ×2 (05:22→10:25)
[2018-10-23] MEDS: LISINOPRIL 20 MG TABLET (FP) PO SCH (10:25)
[2018-10-23] MEDS: PRENATAL VITAMINS W/ FOLIC ACID TABLET (FP) PO SCH (10:25)
--- NOTE | 2018-10-23 11:33 | PN ---
S CIWA - CIWA Score Nausea/Vomitin-Mild Nausea/No Vomiting Muscle Tremors: 2 Anxiety: 1-Mildly Anxious Agitation: 1-Slight > Activity Paroxysmal Sweats: 3 Orientation: 0-Oriented Tacttile Disturbances: 1-Very Mild Itch/Numbness Auditory Disturbances: 0-None Visual Disturbances: 0-None Headache: 0-None Present CIWA-Ar Total Score: 9 BHS Progress Note (SOAP) Subjective: improved but , interrupted sleep, sweats Objective: 10/23/18 11:31 Vital Signs Temperature 98.1 F 10/23/18 09:23 Pulse Rate 88 10/23/18 09:23 Respiratory Rate 20 10/23/18 09:23 Blood Pressure 119/72 10/23/18 09:23 O2 Sat by Pulse Oximetry (%) Laboratory Tests 10/21/18 10/22/18 10/22/18 14:37 07:45 07:45 WBC 3.6 L RBC 4.79 Hgb 14.3 Hct 43.8 MCV 91.4 MCH 29.9 MCHC 32.7 RDW 15.0 Plt Count 223 MPV 7.7 Sodium 140 Potassium 4.3 Chloride 107 Carbon Dioxide 28 Anion Gap 5 L BUN 12 Creatinine 1.2 Creat Clearance w eGFR > 60 Random Glucose 105 Calcium 8.6 Total Bilirubin 0.6 AST 19 ALT 30 Alkaline Phosphatase 53 Total Protein 6.5 Albumin 3.5 Urine Color Ltyellow Urine Appearance Clear Urine pH 5.0 Ur Specific [place] 1.015 Urine Protein Negative Urine Glucose (UA) Negative Urine Ketones Trace H Urine Blood Negative Urine Nitrite Negative Urine Bilirubin Negative Urine Urobilinogen Negative Ur Leukocyte Esterase Negative RPR Titer HIV 1&2 Antibody Screen HIV P24 Antigen 10/22/18 10/22/18 07:45 08:00 WBC RBC Hgb Hct MCV MCH MCHC RDW Plt Count MPV Sodium Potassium Chloride Carbon Dioxide Anion Gap BUN Creatinine Creat Clearance w eGFR Random Glucose Calcium Total Bilirubin AST ALT Alkaline Phosphatase Total Protein Albumin Urine Color Urine Appearance Urine pH Ur Specific [place] Urine Protein Urine Glucose (UA) Urine Ketones Urine Blood Urine Nitrite Urine Bilirubin Urine Urobilinogen Ur Leukocyte Esterase RPR Titer Nonreactive HIV 1&2 Antibody Screen Negative HIV P24 Antigen Negative pt aox3 in nad ambulating Assessment: 10/23/18 11:32 withdrawal sx;s improving Plan: cont detox increase fluids
[2018-10-23] MEDS: chlordiazePOXIDE 5 MG CAPSULE PO SCH ×2 (17:26→22:25)
[2018-10-23] MEDS: THIAMINE HCL 100 MG TABLET (FP) PO SCH (22:24)
[2018-10-24] MEDS: chlordiazePOXIDE 5 MG CAPSULE PO SCH ×2 (05:21→10:24)
[2018-10-24 09:31] VITALS: BP 157/77; PULSE 88; TEMP 95.7
[2018-10-24] MEDS: PRENATAL VITAMINS W/ FOLIC ACID TABLET (FP) PO SCH (10:24)
[2018-10-24] MEDS: LISINOPRIL 20 MG TABLET (FP) PO SCH (10:24)
--- NOTE | 2018-10-24 11:05 | DS ---
[facility] Detox Discharge Summary Admission Date: 10/21/18 Discharge Date: 10/24/18 - History Present History: Alcohol Dependence, Cocaine Dependence - Physical Exam Results Vital Signs: Vital Signs Temperature 95.7 F L 10/24/18 09:31 Pulse Rate 88 10/24/18 09:31 Respiratory Rate 18 10/24/18 09:31 Blood Pressure 157/77 10/24/18 09:31 O2 Sat by Pulse Oximetry (%) - Treatment Hospital Course: Detox Protocol Followed, Detoxed Safely, Responded well, Discharged Condition Good, Rehab Referral Accepted - Medication Discharge Medications: Ambulatory Orders Lisinopril [Prinivil -] 20 mg PO DAILY 03/07/13 - Diagnosis (1) Alcohol dependence with uncomplicated withdrawal Current Visit: Yes Status: Chronic (2) BPH (benign prostatic hyperplasia) Current Visit: Yes Status: Chronic Qualifiers: Lower urinary tract symptom detail: unspecified (3) Cocaine dependence Current Visit: Yes Status: Acute Qualifiers: Substance use status: uncomplicated Qualified Code(s): F14.20 - Cocaine dependence, uncomplicated (4) Essential hypertension Current Visit: Yes Status: Acute (5) History of prostate surgery Current Visit: Yes Status: Acute (6) Back pain Current Visit: Yes Status: Chronic Qualifiers: Back pain location: thoracic back pain Chronicity: acute Back pain laterality: left Qualified Code(s): M54.6 - Pain in thoracic spine (7) Bronchitis Current Visit: No Status: Acute (8) Chest pain Current Visit: No Status: Acute Qualifiers: Chest pain type: unspecified Qualified Code(s): R07.9 - Chest pain, unspecified (9) Cocaine abuse Current Visit: No Status: Acute (10) Dehydration Current Visit: No Status: Acute (11) Fracture of metacarpal bone of right hand Current Visit: No Status: Acute (12) Leg cramping Current Visit: No Status: Acute (13) Muscle strain of chest wall Current Visit: No Status: Acute Qualifiers: Encounter type: initial encounter Qualified Code(s): S29.011A - Strain of muscle and tendon of front wall of thorax, initial encounter (14) Sciatic leg pain Current Visit: No Status: Acute (15) Tendinitis of shoulder Current Visit: No Status: Acute (16) Weakness Current Visit: No Status: Acute - AMA Did Patient Leave Against Medical Advice: No [facility]
[2018-10-24] MEDS ORDERED: chlordiazePOXIDE HCL 10 MG CAPSULE PO SCH (17:00)
== END 2018-10-24 12:00 | disposition home or self-care (01) | DRG 774 ==
LOC: YASAS 10:23 → Y6N 11:17
PROC: HZ2ZZZZ Detoxification Services for Substance Abuse Treatment (ICD-10-PCS; principal; 2018-10-21)
DX: F10.230 Alcohol dependence with withdrawal, uncomplicated (principal); F14.20 Cocaine dependence, uncomplicated; I10 Essential (primary) hypertension; N40.0 Benign prostatic hyperplasia without lower urinary tract symptoms; M54.6 Pain in thoracic spine; G89.29 Other chronic pain; E86.0 Dehydration; Z91.14 Patient's other noncompliance with medication regimen
CPT/HCPCS: 36415; 80053; 81003; 85027; 86593; 87389; 93005; 93010

== ENCOUNTER 2019-03-29 18:21 | Emergency (ER) | payer OTHER | END 2019-03-29 21:32 | disposition left against medical advice (07) | LOC: JER 18:21 ==

== ENCOUNTER 2019-04-22 09:14 | Inpatient (IN) | payer OTHER ==
[2019-04-22 09:53] VITALS: BMI 29.5
--- NOTE | 2019-04-22 10:33 | HP ---
CIWA Score Nausea/Vomitin Muscle Tremors: 2 Anxiety: 2 Agitation: 2 Paroxysmal Sweats: 1-Minimal Palms Moist Orientation: 0-Oriented Tacttile Disturbances: 1-Very Mild Itch/Numbness Auditory Disturbances: 1-Very Mild Visual Disturbances: 0-None Headache: 2-Mild CIWA-Ar Total Score: 13 - Admission Criteria OASAS Guidelines: Admission for Medically Managed Detox: Requires at least one of the followin. CIWA greater than 12 2. Seizures within the past 24 hours 3. Delirium tremens within the past 24 hours 4. Hallucinations within the past 24 hours 5. Acute intervention needed for co occurring medical disorder 6. Acute intervention needed for co occurring psychiatric disorder 7. Severe withdrawal that cannot be handled at a lower level of care (continued vomiting, continued diarrhea, abnormal vital signs) requiring intravenous medication and/or fluids 8. Admission ROS BHS - HPI Chief Complaint: i need help to stop drinking alcohol and cocaine Allergies/Adverse Reactions: Allergies Allergy/AdvReac Type Severity Reaction Status Date / Time No Known Drug Allergies Allergy Verified 04/22/19 09:33 History of Present Illness: this 58 years old male with alcohol and cocaine dependence,seeking detox, withdrawal symptom, multiple admissions in detox,last 10/21/18 to 10/24/18 but keep relapsing history of hypertension, longest period of sobriety 3 years plan for rehab low back pain sciatica Exam Limitations: No Limitations - Ebola screening Have you traveled outside of the country in the last 21 days: No Have you had contact with anyone from an Ebola affected area: No Do you have a fever: No - Review of Systems Constitutional: Chills, Loss of Appetite, Malaise, Night Sweats, Changes in sleep, Weakness EENT: reports: Tearing, Nose Congestion Respiratory: reports: No Symptoms reported Cardiac: reports: No Symptoms Reported GI: reports: Nausea, Poor Appetite, Vomiting, Abdominal cramping : reports: Frequency Musculoskeletal: reports: Back Pain, Muscle Pain Integumentary: reports: Dryness Neuro: reports: Headache, Tremors Endocrine: reports: No Symptoms Reported Hematology: reports: No Symptoms Reported Psychiatric: reports: No Sypmtoms Reported, Judgement Intact, Mood/Affect Appropiate, Orientated x3 Patient History - Patient Medical History Hx Anemia: No Hx Asthma: No Hx Chronic Obstructive Pulmonary Disease (COPD): No Hx Cancer: No Hx Cardiac Disorders: No Hx Congestive Heart Failure: No Hx Hypertension: Yes (non compliance) Hx Hypercholesterolemia: No Hx Pacemaker: No HX Cerebrovascular Accident: No Hx Seizures: No Hx Dementia: No Hx Diabetes: No Hx Gastrointestinal Disorders: No Hx Liver Disease: No Hx Genitourinary Disorders: No Hx Sexually Transmitted Disorders: No Hx Renal Disease (ESRD): No Hx Thyroid Disease: No Hx Human Immunodeficiency Virus (HIV): No (last 2007 negative) Hx Hepatitis C: No Hx Depression: No Hx Suicide Attempt: No Hx Bipolar Disorder: No Hx Schizophrenia: No Other Medical History: no suicidal,no homicidal - Patient Surgical History Past Surgical History: Yes Hx Neurologic Surgery: No Hx Cataract Extraction: No Hx Cardiac Surgery: No Hx Lung Surgery: No Hx Breast Surgery: No Hx Breast Biopsy: No Hx Abdominal Surgery: No Hx Appendectomy: No Hx Cholecystectomy: No Hx Genitourinary Surgery: Yes (for bph in 2016) Hx Section: No Hx Orthopedic Surgery: No Hx Hysterectomy: No Anesthesia Reaction: No - PPD History Previous Implant?: Yes Implanted On Prior [facility] Admission?: Yes Date: 10/23/18 Results: 0 mm PPD to be Administered?: No - Smoking Cessation Smoking history: Former smoker Have you smoked in the past 12 months: No Aproximately how many cigarettes per day: 0 Hx Chewing Tobacco Use: No Initiated information on smoking cessation: Yes 'Breaking Loose' booklet given: 04/22/19 - Substance & Tx. History Hx Alcohol Use: Yes Hx Substance Use: Yes Substance Use Type: Alcohol, Cocaine Hx Substance Use Treatment: Yes ([facility] 10/21/18 to 10/24/18) - Substances abused Alcohol Substance route: Oral Frequency: Daily Amount used: 4 of 24 ozs of beer Age of first use: 17 Date of last use: 04/21/19 Crack Substance route: Smoking Frequency: 1-2 times per week Amount used: 500-600usd Age of first use: 24 Date of last use: 04/21/19 Cocaine Substance route: Smoking Frequency: 1-2 times per week Amount used: 500-600usd Age of first use: 23 Date of last use: 04/21/19 Family Disease History - Family Disease History Family History: Denies Admission Physical Exam BHS - Vital Signs Vital Signs: Vital Signs - 24 hr 04/22/19 04/22/19 09:35 09:52 Temperature 98.6 F 98.6 F Pulse Rate 88 88 Respiratory 20 20 Rate Blood Pressure 145/99 145/99 - Physical General Appearance: Yes: Moderate Distress, Tremorous, Irritable, Sweating, Anxious HEENTM: Yes: Normal ENT Inspection, RG, Pharynx Normal Respiratory: Yes: Lungs Clear, Normal Breath Sounds, No Respiratory Distress Neck: Yes: Within Normal Limits, Supple, Trachea in good position Breast: Yes: Within Normal Limits Cardiology: Yes: Within Normal Limits, Regular Rhythm, Regular Rate, S1, S2 Abdominal: Yes: Within Normal Limits, Normal Bowel Sounds, Non Tender, Flat, Soft Genitourinary: Yes: Within Normal Limits Back: Yes: Muscle Spasm Musculoskeletal: Yes: Back pain, Muscle Pain Extremities: Yes: Within Normal Limits, Normal Range of Motion, Tremors Neurological: 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: 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 NML intact, Fully Oriented, Alert, Motor Strength 5/5 Integumentary: Yes: Dry Lymphatic: Yes: Within Normal Limits - Diagnostic (1) Alcohol dependence with uncomplicated withdrawal Status: Chronic (2) Cocaine dependence Status: Acute Qualifiers: Substance use status: uncomplicated Qualified Code(s): F14.20 - Cocaine dependence, uncomplicated (3) Dehydration Status: Acute (4) Essential hypertension Status: Acute (5) Fracture of metacarpal bone of right hand Status: Acute (6) History of prostate surgery Status: Acute (7) Low back pain with sciatica Status: Acute Cleared for Admission [facility] - Detox or Rehab [facility] Level of Care: Medically Managed Detox Regimen/Protocol: Librium Breathalyzer - Breathalyzer Breathalyzer: 0 Urine Drug Screen - Test Device Lot number: [id number] Expiration date: 12/27/20 - Control Is test valid?: Yes - Results Drug screen NEGATIVE: No Urine drug screen results: ISAAC-Cocaine Inpatient Rehab Admission - Rehab Decision to Admit Inpatient rehab admission?: No
[2019-04-22] MEDS ORDERED: ACETAMINOPHEN 325 MG TABLET (FP) PO PRN ×2 (10:41)
[2019-04-22] MEDS ORDERED: METHOCARBAMOL 500 MG TABLET PO PRN (10:41)
[2019-04-22] MEDS ORDERED: chlordiazePOXIDE HCL 25 MG CAPSULE PO PRN (10:41)
[2019-04-22] MEDS ORDERED: BISMUTH SUBSALICYLATE 524 MG/30 ML UD PO PRN (10:41)
[2019-04-22] MEDS ORDERED: IBUPROFEN 400 MG TABLET (FP) PO PRN (10:41)
[2019-04-22] MEDS ORDERED: MAG HYDROX/AL HYDROX/SIMETH 30 ML UNIT-DOSE CUP PO PRN (10:41)
[2019-04-22] MEDS ORDERED: MAGNESIUM HYDROX 2400MG/30ML ORAL SUSPENSION 30 ML CUP PO PRN (10:41)
[2019-04-22] MEDS ORDERED: hydrOXYzine PAMOATE 25 MG CAPSULE (FP) PO PRN (10:41)
[2019-04-22] MEDS ORDERED: MELATONIN 5 MG TABLETS PO PRN (10:41)
[2019-04-22] MEDS ORDERED: MENTHOL/PHENOL 1 EACH UD MM PRN (10:41)
[2019-04-22] MEDS ORDERED: MAGNESIUM CITRATE 300 ML BOTTLE PO PRN (10:41)
[2019-04-22 12:16] LABS: HEMATOCRIT 39.8 % (35.4-49); HEMOGLOBIN 13.6 GM/dL (11.7-16.9); MCH 31.2 pg (25.7-33.7); MCHC 34.1 g/dl (32.0-35.9); MEAN CELL VOLUME 91.6 fl (80-96); MEAN PLT VOLUME 7.9 fl (7.5-11.1); PLATELET COUNT 235 K/MM3 (134-434); RBC 4.35 M/mm3 (4.00-5.60); RDW 15.2 % (11.9-15.9)
[2019-04-22 12:24] LABS: ALBUMIN 3.9 g/dl (3.4-5.0); BILIRUBIN,TOTAL 0.9 mg/dL (0.2-1); BLOOD UREA NITROGEN 14.9 mg/dL (7-18); CALCIUM 8.7 mg/dL (8.5-10.1); CREATININE 1.2 mg/dL (0.55-1.3); POTASSIUM 3.7 mmol/L (3.5-5.1); TOT PROT 7.2 g/dl (6.4-8.2)
[2019-04-22] MEDS ORDERED: LISINOPRIL 20 MG TABLET (FP) PO SCH (14:00)
--- NOTE | 2019-04-22 17:05 | DS ---
[facility] Detox Discharge Summary Admission Date: 04/22/19 Discharge Date: 04/22/19 - History Present History: Alcohol Dependence, Cocaine Dependence Pertinent Past History: pt states he has a lot of things to do-and since admission this morning, he has had time to think about it and wants to go home. Pt states will go to outpt recovery. Pt will f/u PCP- Braxton Russell - Physical Exam Results Vital Signs: Vital Signs Temperature 98.1 F 04/22/19 14:19 Pulse Rate 78 04/22/19 14:19 Respiratory Rate 18 04/22/19 14:19 Blood Pressure 145/100 04/22/19 14:19 O2 Sat by Pulse Oximetry (%) - Medication Discharge Medications: Ambulatory Orders Lisinopril [Prinivil -] 20 mg PO DAILY 03/07/13 - AMA Did Patient Leave Against Medical Advice: Yes
[2019-04-22 17:19] VITALS: BP 140/98; PULSE 91; TEMP 98.8
[2019-04-22 17:35] LABS: URINE APPEARANCE CLEAR; URINE BILIRUBIN NEGATIVE (NEGATIVE); URINE COLOR YELLOW; URINE GLUCOSE (UA) NEGATIVE (NEGATIVE); URINE KETONE NEGATIVE (NEGATIVE); URINE LEUK ESTERASE NEGATIVE (NEGATIVE); URINE NITRITE NEGATIVE (NEGATIVE); URINE PROTEIN TRACE (NEGATIVE); URINE UROBILINOGEN 0.2 mg/dL (0.2-1.0)
[2019-04-22] MEDS ORDERED: THIAMINE HCL 100 MG TABLET (FP) PO SCH (22:00)
[2019-04-22] MEDS ORDERED: chlordiazePOXIDE HCL 25 MG CAPSULE PO SCH (23:00)
[2019-04-23] MEDS ORDERED: PRENATAL VITAMINS W/ FOLIC ACID TABLET (FP) PO SCH (10:00)
[2019-04-23] MEDS ORDERED: chlordiazePOXIDE HCL 25 MG CAPSULE PO SCH (23:00)
[2019-04-24] MEDS ORDERED: chlordiazePOXIDE HCL 10 MG CAPSULE PO SCH (23:00)
[2019-04-24] MEDS ORDERED: chlordiazePOXIDE HCL 10 MG CAPSULE PO PRN (23:00)
[2019-04-25] MEDS ORDERED: chlordiazePOXIDE HCL 10 MG CAPSULE PO SCH (23:00)
== END 2019-04-22 17:30 | disposition left against medical advice (07) | DRG 770 ==
LOC: YASAS 09:14 → Y6N 11:10
PROVIDERS: ADMIT Surgery; ATTEND Surgery
PROC: HZ2ZZZZ Detoxification Services for Substance Abuse Treatment (ICD-10-PCS; principal; 2019-04-22)
DX: F10.230 Alcohol dependence with withdrawal, uncomplicated (principal); F14.20 Cocaine dependence, uncomplicated; E86.0 Dehydration; I10 Essential (primary) hypertension; M54.40 Lumbago with sciatica, unspecified side; Z87.891 Personal history of nicotine dependence; Z91.14 Patient's other noncompliance with medication regimen
CPT/HCPCS: 36415; 80053; 81003; 85027; 86593

== ENCOUNTER 2019-08-13 06:34 | Emergency (ER) | payer OTHER ==
[2019-08-13] MEDS ORDERED: KETOROLAC TROMETHAMINE 60 MG/2 ML VIAL IM ONE (07:19)
[2019-08-13] MEDS ORDERED: KETOROLAC TROMETHAMINE 60 MG/2 ML VIAL ONE (07:21)
[2019-08-13] MEDS ORDERED: KETOROLAC TROMETHAMINE 30 MG/1 ML VIAL ONE (07:22)
[2019-08-13 07:23] VITALS: BP 145/98; PULSE 71; TEMP 98.1; BMI 29.7
--- NOTE | 2019-08-13 07:36 | PDOC ---
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 Patient described pain as 9 out of 10 cramping pain. Patient has not taken medication for pain. Denies numbness or tingling sensation. Denies radiculopathy, urinary fecal incontinence. Denies any other symptoms Occurred: reports: other (3 days) Past History - Past Medical History Allergies/Adverse Reactions: Allergies Allergy/AdvReac Type Severity Reaction Status Date / Time No Known Drug Allergies Allergy Verified 08/13/19 07:12 Home Medications: Ambulatory Orders Lisinopril [Prinivil -] 20 mg PO DAILY 03/07/13 Methocarbamol [Robaxin -] 500 mg PO BID PRN #14 tablet 08/13/19 Naproxen 500 mg PO BID PRN #20 tablet 08/13/19 Anemia: No Asthma: No Cancer: No Cardiac Disorders: No CVA: No COPD: No CHF: No Dementia: No Diabetes: No GI Disorders: No Disorders: No HTN: Yes (non compliance) Hypercholesterolemia: No Kidney Stones: No Liver Disease: No Seizures: No Thyroid Disease: No - Surgical History Abdominal Surgery: No Appendectomy: No Cardiac Surgery: No Cholecystectomy: No Lung Surgery: No Neurologic Surgery: No Orthopedic Surgery: No - Reproductive History Testicular Surgery: No - Immunization History Immunization Up to Date: Yes - Psycho Social/Smoking Cessation Hx Smoking Status: Yes Smoking History: Never smoked Have you smoked in the past 12 months: No Number of Cigarettes Smoked Daily: 0 Information on smoking cessation initiated: No 'Breaking Loose' booklet given: 04/22/19 Hx Alcohol Use: No Drug/Substance Use Hx: No Substance Use Type: Alcohol, Cocaine Hx Substance Use Treatment: Yes ([facility] 10/21/18 to 10/24/18) Trauma Specific PMHX - Complaint Specific PMHX Arthritis: No Back Injury: Yes Neck Injury: Yes Review of Systems - Review of Systems Able to Perform ROS?: Yes Is the patient limited Lao proficient: No Constitutional: No: Chills, Fever, Weakness HEENTM: No: Symptoms Reported Respiratory: No: Symptoms reported, See HPI, Cough, Orthopnea, Shortness of Breath, SOB with Exertion, SOB at Rest, Stridor, Wheezing, Productive cough, Hemoptysis, Other Cardiac (ROS): No: Symptoms Reported, See HPI, Chest Pain, Edema, Irregular Heart Rate, Lightheadedness, Palpitations, Syncope, Chest Tightness, Other ABD/GI: No: Nausea, Vomiting : No: Burning, Dysuria, Frequency, Flank Pain, Urgency, Testicular Mass, Testicular Swelling, Lesions, Testicular Pain Musculoskeletal: Yes: Symptoms Reported, See HPI, Back Pain (b/l lower back), Muscle Pain Integumentary: No: Symptoms Reported Neurological: No: Symptoms reported, Numbness, Paresthesia, Tingling All Other Systems: Reviewed and Negative *Physical Exam - Vital Signs Last Vital Signs Temp Pulse Resp BP Pulse Ox 98.1 F 71 18 145/98 97 08/13/19 06:40 08/13/19 06:40 08/13/19 06:40 08/13/19 06:40 08/13/19 06:40 - Physical Exam Comments: 08/13/19 07:36 GENERAL: Well developed, well nourished. Awake and alert mild acute distress. PULMONARY: No evidence of respiratory distress. ABDOMINAL: Soft. Non-tender. Non-distended. No rebound or guarding. No organomegaly. Normoactive bowel sounds MUSCULOSKELETAL : mild tenderness over posterior paravertebral muscle of lumbosacral spine of L4-S2 on bilateral sides. No bony deformities SKIN: Warm and dry. Normal capillary refill. . NEUROLOGICAL: Alert, awake, appropriate. No motor deficits in the lower extremities. Gait is normal without ataxia. PSYCHIATRIC: Cooperative. Good eye contact. Appropriate mood and affect. 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 Patient described pain as 9 out of 10 cramping pain. Patient has not taken medication for pain. Denies numbness or tingling sensation. Denies radiculopathy, urinary fecal incontinence. Denies any other symptoms Exam significant for moderate tenderness bilateral Root vertebral muscle of lower lumbosacral spine of L4 to restroom bilateral side. Negative straight leg test. . Patient symptoms likely sciatica. Toradol 60 mg IM ordered for pain. Will hold off muscle relaxant as patient is driving and will DC patient home on naproxen as needed for pain and Robaxin p.o. for spasm with orthopedic spine follow-up. Patient stable for discharge Discharge - Discharge Information Problems reviewed: Yes Clinical Impression/Diagnosis: Low back pain with sciatica Qualifiers: Chronicity: chronic Back pain laterality: bilateral Sciatica laterality: bilateral sciatica Qualified Code(s): M54.42 - Lumbago with sciatica, left side ; M54.41 - Lumbago with sciatica, right side; G89.29 - Other chronic pain Condition: Stable Disposition: HOME - Admission No - Additional Discharge Information Prescriptions: Methocarbamol [Robaxin -] 500 mg PO BID PRN #14 tablet PRN Reason: Back Pain Naproxen 500 mg PO BID PRN #20 tablet PRN Reason: Back Pain - Follow up/Referral - Patient Discharge Instructions Patient Printed Discharge Instructions: DI for Back Pain With Sciatica Additional Instructions: Your pain is likely caused by her sciatica. Take prescribed medication as needed for pain. Apply hot compress to low back 2-3 times a day as needed for pain. Follow-up with your orthopedics if symptoms persist - Post Discharge Activity
== END 2019-08-13 07:54 | disposition home or self-care (01) ==
LOC: JER 06:34
PROC: 3E0233Z Introduction of Anti-inflammatory into Muscle, Percutaneous Approach (ICD-10-PCS; principal; 2019-08-13)
DX: M54.41 Lumbago with sciatica, right side (principal); M54.42 Lumbago with sciatica, left side; G89.29 Other chronic pain; I10 Essential (primary) hypertension; Z91.14 Patient's other noncompliance with medication regimen; X50.0XXA Overexertion from strenuous movement or load, initial encounter; Y93.89 Activity, other specified; Y92.69 Other specified industrial and construction area as the place of occurrence of the external cause; Y99.0 Civilian activity done for income or pay
CPT/HCPCS: 96372; 99281-25

== ENCOUNTER 2019-09-10 18:26 | Emergency (ER) | payer OTHER ==
[2019-09-10 18:33] VITALS: BP 144/96; PULSE 84; TEMP 98; BMI 29.9
[2019-09-10] MEDS ORDERED: KETOROLAC TROMETHAMINE 60 MG/2 ML VIAL IM ONE (18:33)
--- NOTE | 2019-09-10 18:33 | PDOC ---
Rapid Medical Evaluation Time Seen by Provider: 09/10/19 18:30 Medical Evaluation: Allergies Allergy/AdvReac Type Severity Reaction Status Date / Time No Known Drug Allergies Allergy Verified 08/13/19 07:12 09/10/19 18:30 I have performed a brief in-person evaluation of this patient. 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 Discharge Disposition - Diagnosis Back pain - Referrals - Patient Instructions - Post Discharge Activity
[2019-09-10] MEDS ORDERED: KETOROLAC TROMETHAMINE 60 MG/2 ML VIAL ONE (19:31)
--- NOTE | 2019-09-10 19:47 | PDOC ---
History of Present Illness - General Chief Complaint: Back Pain Stated Complaint: BACK PAIN Time Seen by Provider: 09/10/19 18:30 - History of Present Illness Initial Comments: 09/10/19 19:44 58-year-old male with a past medical history of GERD and hypertension on HASMUKH inhibitor presents for evaluation of low back pain without systemic or radicular symptoms no urinary incontinence or retention. Past History - Past Medical History Allergies/Adverse Reactions: Allergies Allergy/AdvReac Type Severity Reaction Status Date / Time No Known Drug Allergies Allergy Verified 09/10/19 18:34 Home Medications: Ambulatory Orders Lisinopril [Prinivil -] 20 mg PO DAILY 03/07/13 Methocarbamol [Robaxin -] 500 mg PO BID PRN #14 tablet 08/13/19 Naproxen 500 mg PO BID PRN #20 tablet 08/13/19 Cyclobenzaprine HCl [Flexeril 10 mg] 10 mg PO HS PRN #10 tablet 09/10/19 Methylprednisolone [Medrol Dose Tobin] 4 mg PO ASDIR #21 tablet 09/10/19 Anemia: No Asthma: No Cancer: No Cardiac Disorders: No CVA: No COPD: No CHF: No Dementia: No Diabetes: No GI Disorders: No Disorders: No HTN: Yes (non compliance) Hypercholesterolemia: No Kidney Stones: No Liver Disease: No Seizures: No Thyroid Disease: No - Surgical History Abdominal Surgery: No Appendectomy: No Cardiac Surgery: No Cholecystectomy: No Lung Surgery: No Neurologic Surgery: No Orthopedic Surgery: No - Reproductive History Testicular Surgery: No - Immunization History Immunization Up to Date: Yes - Psycho Social/Smoking Cessation Hx Smoking Status: Yes Smoking History: Never smoked Have you smoked in the past 12 months: No Number of Cigarettes Smoked Daily: 0 'Breaking Loose' booklet given: 04/22/19 Hx Alcohol Use: No Drug/Substance Use Hx: No Substance Use Type: Alcohol, Cocaine Hx Substance Use Treatment: Yes ([facility] 10/21/18 to 10/24/18) Review of Systems - Review of Systems Constitutional: No: Fever : No: Incontinence Musculoskeletal: Yes: Back Pain *Physical Exam - Vital Signs Last Vital Signs Temp Pulse Resp BP Pulse Ox 98 F 84 18 144/96 98 09/10/19 18:28 09/10/19 18:28 09/10/19 18:28 09/10/19 18:28 09/10/19 18:28 - Physical Exam Comments: 09/10/19 19:45 Lumbar spine skin color and temperature normal. There is no midline tenderness. Moderate right and left paralumbar musculature spasm and tenderness. 5 out of 5 strength bilateral lower extremities without gross sensorimotor deficits negative straight leg raise test bilaterally. ED Treatment Course - Medications Given in the ED: ED Medications Discontinued Medications Generic Name Dose Route Start Last Admin Trade Name Pedro PRN Reason Stop Dose Admin Ketorolac Tromethamine 60 mg 09/10/19 18:33 09/10/19 19:43 Toradol Injection - IM 09/10/19 18:34 60 mg ONCE ONE Administration Medical Decision Making - Medical Decision Making 09/10/19 19:45 58-year-old male with gastric ulcer disease on an HASMUKH inhibitor and proton pump inhibitor advised to avoid anti-inflammatories I will place him on a Medrol Dosepak and Flexeril and have him follow-up with neurosurgery he is in agreement with the plan Discharge - Discharge Information Problems reviewed: Yes Clinical Impression/Diagnosis: Back pain Condition: Stable Disposition: HOME - Admission No - Follow up/Referral Referrals: Duglas Russell MD [Primary Care Provider] - Uziel Quintana MD, FAANS [Staff Physician] - - Patient Discharge Instructions Additional Instructions: Only take the Flexeril and the Medrol Dosepak as well as your hypertensive medication lisinopril and abdominal medicine. Return to the emergency room for worsening symptoms. You may add Tylenol as directed for pain control if you require more pain medication. Avoid anti-inflammatory such as Advil Motrin Aleve and ibuprofen. Follow-up with neurosurgery in 1 to 2 days without fail for further evaluation and treatment options and return to the emergency room should symptoms worsen. The Flexeril is 1 tablet before bedtime will make you sleepy. Please take the Medrol Dosepak as directed on the package - Post Discharge Activity
== END 2019-09-10 19:58 | disposition home or self-care (01) ==
LOC: JERFT 18:26
PROC: 3E0233Z Introduction of Anti-inflammatory into Muscle, Percutaneous Approach (ICD-10-PCS; principal; 2019-09-10)
DX: M62.830 Muscle spasm of back (principal); I10 Essential (primary) hypertension; K21.9 Gastro-esophageal reflux disease without esophagitis; F10.11 Alcohol abuse, in remission; F14.11 Cocaine abuse, in remission
CPT/HCPCS: 96372; 99281-25

== ENCOUNTER 2020-09-21 04:38 | Day surgery (SDC) | payer OTHER ==
[2020-09-18 12:28] VITALS: BMI 30.4
[~2020-09-21 04:38] MED LIST: DEXAMETHASONE SOD PHOSPHATE 10 MG/1 ML VIAL IVPUSH ONE; IOHEXOL 180 MG/1 ML ML IJ ONE; LIDOCAINE HCL 1% PRESERVATIVE FREE - 30ML VIAL IJ ONE
[2020-09-21] MEDS ORDERED: TRIAMCINOLONE ACET 40MG/1ML VIAL ONE (07:19)
[2020-09-21] MEDS ORDERED: DEXAMETHASONE SOD PHOSPHATE/PF 10 MG/ML SDV ONE ×2 (07:20→09:03)
[2020-09-21] MEDS ORDERED: BUPIVACAINE HCL 50 ML ONE (07:20)
[2020-09-21] MEDS ORDERED: BUPIVACAINE HCL/PF 0.25% (2.5MG/ML) 10 ML VIAL ONE (07:20)
[2020-09-21] MEDS ORDERED: LIDOCAINE HCL/PF 1% SDV 5ML VIAL ONE (07:20)
[2020-09-21] MEDS ORDERED: BUPIVACAINE HCL/PF 0.75% 10 ML VIAL ONE (07:20)
[2020-09-21] MEDS ORDERED: DEXAMETHASONE SOD PHOSPHATE 10 MG/1 ML VIAL IVPUSH ONE (09:03)
[2020-09-21] MEDS ORDERED: LIDOCAINE HCL 1% PRESERVATIVE FREE - 30ML VIAL IJ ONE (09:03)
[2020-09-21] MEDS ORDERED: IOHEXOL 180 MG/1 ML ML IJ ONE (09:03)
[2020-09-21 09:36] VITALS: TEMP 97.9
[2020-09-21 10:27] VITALS: BP 131/70; PULSE 66
== END 2020-09-21 10:10 | disposition home or self-care (01) ==
LOC: JASU-SURG 04:38
PROVIDERS: ATTEND Pain Medicine Pain Medicine
PROC: 3E0R33Z Introduction of Anti-inflammatory into Spinal Canal, Percutaneous Approach (ICD-10-PCS; 2020-09-21)
PROC: 3E0R3BZ Introduction of Anesthetic Agent into Spinal Canal, Percutaneous Approach (ICD-10-PCS; principal; 2020-09-21 08:30)
DX: M54.16 Radiculopathy, lumbar region (principal)
CPT/HCPCS: 76000-TC-FY; J1100

== ENCOUNTER 2020-10-09 05:55 | Day surgery (SDC) | payer OTHER ==
[2020-10-09] MEDS ORDERED: TRIAMCINOLONE ACET 40MG/1ML VIAL ONE (07:11)
[2020-10-09] MEDS ORDERED: LIDOCAINE HCL/PF 1% SDV 5ML VIAL ONE (07:11)
[2020-10-09] MEDS ORDERED: BUPIVACAINE HCL/PF 0.25% (2.5MG/ML) 10 ML VIAL ONE (07:11)
[2020-10-09] MEDS ORDERED: DEXAMETHASONE SOD PHOSPHATE 4 MG/1 ML VIAL ONE (07:11)
[2020-10-09] MEDS ORDERED: BUPIVACAINE HCL/PF 0.75% 10 ML VIAL ONE (07:12)
[2020-10-09] MEDS ORDERED: BUPIVACAINE HCL 50 ML ONE (07:12)
[2020-10-09 07:26] VITALS: TEMP 98.2
[2020-10-09] MEDS ORDERED: DEXAMETHASONE SOD PHOSPHATE/PF 10 MG/ML SDV ONE (08:45)
[2020-10-09] MEDS ORDERED: LIDOCAINE HCL 1% PRESERVATIVE FREE - 30ML VIAL IJ ONE ×2 (08:52)
[2020-10-09] MEDS ORDERED: IOHEXOL 180 MG/1 ML ML IJ ONE ×2 (08:53)
[2020-10-09] MEDS ORDERED: DEXAMETHASONE SOD PHOSPHATE 10 MG/1 ML VIAL IM ONE (08:53)
[2020-10-09 11:26] VITALS: BP 129/90; PULSE 62
== END 2020-10-09 10:00 | disposition home or self-care (01) ==
LOC: JASU-SURG 05:55
PROVIDERS: ATTEND Pain Medicine Pain Medicine
PROC: 3E0R33Z Introduction of Anti-inflammatory into Spinal Canal, Percutaneous Approach (ICD-10-PCS; 2020-10-09)
PROC: B01BYZZ Fluoroscopy of Spinal Cord using Other Contrast (ICD-10-PCS; 2020-10-09)
PROC: 3E0R3BZ Introduction of Anesthetic Agent into Spinal Canal, Percutaneous Approach (ICD-10-PCS; principal; 2020-10-09 08:30)
DX: M48.061 Spinal stenosis, lumbar region without neurogenic claudication (principal); M54.16 Radiculopathy, lumbar region
CPT/HCPCS: 76000-TC-FY; J1100

== ENCOUNTER → 2020-11-13 | Day surgery (SDC) | payer OTHER ==
[~2020-11-13] MED LIST changes: -DEXAMETHASONE SOD PHOSPHATE 10 MG/1 ML VIAL IVPUSH ONE; -IOHEXOL 180 MG/1 ML ML IJ ONE; -LIDOCAINE HCL 1% PRESERVATIVE FREE - 30ML VIAL IJ ONE; +LIDOCAINE HCL/PF 1% SDV 5ML VIAL ONE; +LIDOCAINE HCL/PF 2% SDV 5ML VIAL ONE
== END | disposition home or self-care (01) ==
LOC: JASU-SURG 04:26
PROVIDERS: ATTEND Pain Medicine Pain Medicine
DX: Z53.8 Procedure and treatment not carried out for other reasons (principal)

== ENCOUNTER 2020-11-27 04:20 | Day surgery (SDC) | payer OTHER ==
[2020-11-25 14:19] VITALS: BMI 29.2
[2020-11-27] MEDS ORDERED: LIDOCAINE HCL 1% PRESERVATIVE FREE - 30ML VIAL IJ ONE (10:13)
[2020-11-27] MEDS ORDERED: IOHEXOL 180 MG/1 ML ML IJ ONE (10:13)
[2020-11-27] MEDS ORDERED: DEXAMETHASONE SOD PHOSPHATE 4 MG/1 ML VIAL IVPUSH ONE (10:15)
[2020-11-27 10:48] VITALS: BP 131/90; PULSE 75; TEMP 98.2
== END 2020-11-27 11:15 | disposition home or self-care (01) ==
LOC: JASU-SURG 04:20
PROVIDERS: ATTEND Pain Medicine Pain Medicine
PROC: 3E0R33Z Introduction of Anti-inflammatory into Spinal Canal, Percutaneous Approach (ICD-10-PCS; 2020-11-27)
PROC: 3E0R3BZ Introduction of Anesthetic Agent into Spinal Canal, Percutaneous Approach (ICD-10-PCS; principal; 2020-11-27 10:00)
DX: M48.061 Spinal stenosis, lumbar region without neurogenic claudication (principal); M54.16 Radiculopathy, lumbar region; Z53.8 Procedure and treatment not carried out for other reasons
CPT/HCPCS: 76000-TC-FY

== ENCOUNTER 2021-01-16 13:04 | Inpatient (IN) | payer OTHER ==
[2021-01-16 14:07] VITALS: BMI 27.8
[2021-01-16] MEDS ORDERED: chlordiazePOXIDE HCL 25 MG CAPSULE PO PRN (14:39)
[2021-01-16] MEDS ORDERED: MAGNESIUM CITRATE 300 ML BOTTLE PO PRN (14:39)
[2021-01-16] MEDS ORDERED: BISMUTH SUBSALICYLATE 524 MG/30 ML UD PO PRN (14:39)
[2021-01-16] MEDS ORDERED: ONDANSETRON *ODT* 4 MG TABLET SL PRN (14:39)
[2021-01-16] MEDS ORDERED: MENTHOL/PHENOL 1 EACH UD MM PRN (14:39)
[2021-01-16] MEDS ORDERED: chlordiazePOXIDE HCL 25 MG CAPSULE PO ONE (14:39)
[2021-01-16] MEDS ORDERED: ACETAMINOPHEN 325 MG TABLET (FP) PO PRN (14:39)
[2021-01-16] MEDS ORDERED: MAGNESIUM HYDROX 2400MG/30ML ORAL SUSPENSION 30 ML CUP PO PRN (14:39)
[2021-01-16] MEDS ORDERED: MAG HYDROX/AL HYDROX/SIMETH 30 ML UNIT-DOSE CUP PO PRN (14:39)
[2021-01-16] MEDS ORDERED: IBUPROFEN 400 MG TABLET (FP) PO PRN (14:39)
[2021-01-16] MEDS ORDERED: GABAPENTIN 400 MG CAPSULE PO SCH (14:45)
[2021-01-16] MEDS ORDERED: hydrOXYzine PAMOATE 25 MG CAPSULE (FP) PO PRN (14:52)
[2021-01-16] MEDS ORDERED: chlordiazePOXIDE HCL 25 MG CAPSULE ONE (16:01)
[2021-01-16] MEDS ORDERED: METHOCARBAMOL 500 MG TABLET ONE (16:20)
[2021-01-16] MEDS ORDERED: ACETAMINOPHEN 325 MG TABLET (FP) ONE (16:20)
[2021-01-16] MEDS: METHOCARBAMOL 500 MG TABLET PO PRN (16:21)
[2021-01-16] MEDS: ACETAMINOPHEN 325 MG TABLET (FP) PO PRN (16:21)
[2021-01-16] MEDS: GABAPENTIN 300 MG CAPSULE PO SCH ×2 (17:46→22:21)
[2021-01-16] MEDS: LIDOCAINE 5% TOPICAL PATCH TP SCH (17:47)
[2021-01-16] MEDS: chlordiazePOXIDE HCL 25 MG CAPSULE PO SCH ×2 (17:48→22:21)
[2021-01-16] MEDS ORDERED: hydrOXYzine PAMOATE 25 MG CAPSULE (FP) PO SCH (18:00)
[2021-01-16] MEDS: LIDOCAINE PATCH REMOVAL MC SCH (21:07)
[2021-01-16] MEDS: THIAMINE HCL 100 MG TABLET (FP) PO SCH (22:21)
[2021-01-16] MEDS: MELATONIN 5 MG TABLETS PO SCH (22:21)
[2021-01-17] MEDS: GABAPENTIN 300 MG CAPSULE PO SCH ×3 (05:28→22:50)
[2021-01-17] MEDS: chlordiazePOXIDE HCL 25 MG CAPSULE PO SCH ×4 (05:28→22:50)
[2021-01-17] MEDS ORDERED: LISINOPRIL 10 MG TABLET PO SCH (10:00)
[2021-01-17] MEDS: PRENATAL VITAMINS W/ FOLIC ACID TABLET (FP) PO SCH (10:34)
[2021-01-17] MEDS: LISINOPRIL 20 MG TABLET PO SCH (10:35)
[2021-01-17] MEDS: LIDOCAINE 5% TOPICAL PATCH TP SCH (10:36)
[2021-01-17 11:29] LABS: POTASSIUM 3.7 mmol/L (3.5-5.1)
[2021-01-17 11:35] LABS: HEMOGLOBIN 13.1 GM/dL (11.7-16.9); MCH 31.9 pg (25.7-33.7); MCHC 34.6 g/dl (32.0-35.9); MEAN CELL VOLUME 92.2 fl (80-96); MEAN PLT VOLUME 7.6 fl (7.5-11.1); PLATELET COUNT 208 K/MM3 (134-434); RBC 4.12 M/mm3 (4.00-5.60); RDW 15.8 % (11.9-15.9); WHITE BLOOD COUNT 3.1 K/mm3 (4.0-10.0)
[2021-01-17 11:36] LABS: CALCIUM 8.5 mg/dL (8.5-10.1)
[2021-01-17 11:37] LABS: ALBUMIN 3.3 g/dl (3.4-5.0); BLOOD UREA NITROGEN 10.6 mg/dL (7-18)
[2021-01-17 11:41] LABS: BILIRUBIN,TOTAL 1.7 mg/dL (0.2-1)
[2021-01-17] MEDS: MELATONIN 5 MG TABLETS PO SCH (22:50)
[2021-01-17] MEDS: THIAMINE HCL 100 MG TABLET (FP) PO SCH (22:50)
[2021-01-17] MEDS: LIDOCAINE PATCH REMOVAL MC SCH (22:51)
[2021-01-18] MEDS: chlordiazePOXIDE HCL 25 MG CAPSULE PO SCH ×4 (05:51→22:00)
[2021-01-18] MEDS: GABAPENTIN 300 MG CAPSULE PO SCH ×3 (05:51→21:48)
[2021-01-18] MEDS: METHOCARBAMOL 500 MG TABLET PO PRN ×2 (10:48→21:51)
[2021-01-18] MEDS: LIDOCAINE 5% TOPICAL PATCH TP SCH (10:49)
[2021-01-18] MEDS: PRENATAL VITAMINS W/ FOLIC ACID TABLET (FP) PO SCH (10:49)
[2021-01-18] MEDS: LISINOPRIL 20 MG TABLET PO SCH (10:49)
[2021-01-18] MEDS: LIDOCAINE PATCH REMOVAL MC SCH (21:48)
[2021-01-18] MEDS: THIAMINE HCL 100 MG TABLET (FP) PO SCH (21:49)
[2021-01-18] MEDS: MELATONIN 5 MG TABLETS PO SCH (21:49)
[2021-01-19] MEDS ORDERED: chlordiazePOXIDE HCL 10 MG CAPSULE PO PRN
[2021-01-19] MEDS: chlordiazePOXIDE HCL 10 MG CAPSULE PO SCH ×4 (05:32→22:20)
[2021-01-19] MEDS: GABAPENTIN 300 MG CAPSULE PO SCH ×3 (05:32→22:17)
[2021-01-19] MEDS: PRENATAL VITAMINS W/ FOLIC ACID TABLET (FP) PO SCH (10:09)
[2021-01-19] MEDS: LIDOCAINE 5% TOPICAL PATCH TP SCH (10:09)
[2021-01-19] MEDS: LISINOPRIL 20 MG TABLET PO SCH (10:10)
[2021-01-19] MEDS: METHOCARBAMOL 500 MG TABLET PO PRN (10:12)
[2021-01-19] MEDS: ACETAMINOPHEN 325 MG TABLET (FP) PO PRN (10:14)
[2021-01-19] MEDS: THIAMINE HCL 100 MG TABLET (FP) PO SCH (22:17)
[2021-01-19] MEDS: MELATONIN 5 MG TABLETS PO SCH (22:18)
[2021-01-19] MEDS: LIDOCAINE PATCH REMOVAL MC SCH (22:18)
[2021-01-20] MEDS: GABAPENTIN 300 MG CAPSULE PO SCH ×3 (05:34→22:24)
[2021-01-20] MEDS: chlordiazePOXIDE HCL 10 MG CAPSULE PO SCH ×2 (05:36→18:23)
[2021-01-20] MEDS: LISINOPRIL 20 MG TABLET PO SCH (09:42)
[2021-01-20] MEDS: PRENATAL VITAMINS W/ FOLIC ACID TABLET (FP) PO SCH (09:42)
[2021-01-20] MEDS: LIDOCAINE 5% TOPICAL PATCH TP SCH (09:43)
[2021-01-20] MEDS: METHOCARBAMOL 500 MG TABLET PO PRN ×2 (10:14→18:26)
[2021-01-20] MEDS: ACETAMINOPHEN 325 MG TABLET (FP) PO PRN (18:25)
[2021-01-20] MEDS: THIAMINE HCL 100 MG TABLET (FP) PO SCH (22:24)
[2021-01-20] MEDS: LIDOCAINE PATCH REMOVAL MC SCH (22:24)
[2021-01-20] MEDS: MELATONIN 5 MG TABLETS PO SCH (22:24)
[2021-01-21] MEDS ORDERED: chlordiazePOXIDE HCL 10 MG CAPSULE PO ONE (05:00)
[2021-01-21] MEDS: GABAPENTIN 300 MG CAPSULE PO SCH (05:37)
[2021-01-21] MEDS: LISINOPRIL 20 MG TABLET PO SCH (10:04)
[2021-01-21] MEDS: LIDOCAINE 5% TOPICAL PATCH TP SCH (10:04)
[2021-01-21] MEDS: PRENATAL VITAMINS W/ FOLIC ACID TABLET (FP) PO SCH (10:04)
[2021-01-21] MEDS: METHOCARBAMOL 500 MG TABLET PO PRN (10:05)
[2021-01-21 13:20] VITALS: BP 138/86; PULSE 92; TEMP 97.3
== END 2021-01-21 01:36 | disposition other institution (70) | DRG 774 ==
LOC: YASAS 13:04 → Y3N 16:35
PROVIDERS: ADMIT Allergy & Immunology; ATTEND Allergy & Immunology
PROC: HZ2ZZZZ Detoxification Services for Substance Abuse Treatment (ICD-10-PCS; principal; 2021-01-16)
DX: F10.230 Alcohol dependence with withdrawal, uncomplicated (principal); F14.20 Cocaine dependence, uncomplicated; F12.20 Cannabis dependence, uncomplicated; E86.0 Dehydration; I10 Essential (primary) hypertension; M54.42 Lumbago with sciatica, left side; G89.29 Other chronic pain; N40.0 Benign prostatic hyperplasia without lower urinary tract symptoms; Z87.81 Personal history of (healed) traumatic fracture; Z86.19 Personal history of other infectious and parasitic diseases; Z98.890 Other specified postprocedural states
CPT/HCPCS: 36415; 80053; 85027; 86780; C9803; U0003; U0005

== ENCOUNTER 2021-02-21 08:28 | Inpatient (IN) | payer OTHER ==
[2021-02-21 12:23] VITALS: BMI 28.1
[2021-02-21] MEDS ORDERED: guaiFENesin 200 MG/10 ML 10 ML UNIT-DOSE CUPS PO PRN (18:10)
[2021-02-21] MEDS ORDERED: IBUPROFEN 400 MG TABLET (FP) PO PRN (18:10)
[2021-02-21] MEDS ORDERED: P-EPHED 60MG/TRIPROLIDI 2.5MG TABLET PO PRN (18:10)
[2021-02-21] MEDS ORDERED: LOPERAMIDE HCL 2 MG CAPSULE PO PRN (18:10)
[2021-02-21] MEDS ORDERED: MAGNESIUM CITRATE 300 ML BOTTLE PO PRN (18:10)
[2021-02-21] MEDS ORDERED: MAG HYDROX/AL HYDROX/SIMETH 30 ML UNIT-DOSE CUP PO PRN (18:10)
[2021-02-21] MEDS ORDERED: MAGNESIUM HYDROX 2400MG/30ML ORAL SUSPENSION 30 ML CUP PO PRN (18:10)
[2021-02-21] MEDS ORDERED: TUBERCULIN PPD 5 TU/0.1ML VIAL ID ONE ×2 (18:46→22:01)
[2021-02-21] MEDS: hydrOXYzine PAMOATE 25 MG CAPSULE (FP) PO SCH (21:33)
[2021-02-21] MEDS: GABAPENTIN 300 MG CAPSULE PO SCH (21:33)
[2021-02-21] MEDS: LISINOPRIL 20 MG TABLET PO SCH (21:33)
[2021-02-21] MEDS: MELATONIN 5 MG TABLETS PO SCH (21:34)
[2021-02-21] MEDS: THIAMINE HCL 100 MG TABLET (FP) PO SCH (21:35)
[2021-02-22] MEDS: hydrOXYzine PAMOATE 25 MG CAPSULE (FP) PO SCH (06:36)
[2021-02-22] MEDS: GABAPENTIN 300 MG CAPSULE PO SCH ×3 (06:36→21:34)
[2021-02-22] MEDS ORDERED: hydrOXYzine PAMOATE 25 MG CAPSULE (FP) PO PRN (09:41)
[2021-02-22] MEDS: LISINOPRIL 20 MG TABLET PO SCH ×2 (09:41→21:34)
[2021-02-22] MEDS: PRENATAL VITAMINS W/ FOLIC ACID TABLET (FP) PO SCH (09:41)
[2021-02-22] MEDS ORDERED: PT OWN MED DRAWER 7, Y5N ONE ×2 (10:02→12:59)
[2021-02-22 10:43] LABS: CALCIUM 8.7 mg/dL (8.5-10.1)
[2021-02-22 10:44] LABS: ALBUMIN 3.5 g/dl (3.4-5.0); BLOOD UREA NITROGEN 11.6 mg/dL (7-18)
[2021-02-22 10:47] LABS: CREATININE 1.3 mg/dL (0.55-1.3)
[2021-02-22 10:47] LABS: EPI CELLS 7 /uL (0-25.1); HYALINE CASTS 0 /uL (0-3.1); URINE APPEARANCE CLEAR; URINE BACTERIA 82 /uL (0-1359); URINE BILIRUBIN NEGATIVE (NEGATIVE); URINE COLOR YELLOW; URINE GLUCOSE (UA) NEGATIVE (NEGATIVE); URINE KETONE NEGATIVE (NEGATIVE); URINE LEUK ESTERASE NEGATIVE (NEGATIVE); URINE NITRITE NEGATIVE (NEGATIVE); URINE PROTEIN 1+ (NEGATIVE); URINE RBC 2 /uL (0-23.9); URINE UROBILINOGEN 0.2 mg/dL (0.2-1.0); URINE WBC 14 /uL (0-25.8)
[2021-02-22 10:48] LABS: BILIRUBIN,TOTAL 0.9 mg/dL (0.2-1); TOT PROT 6.2 g/dl (6.4-8.2)
[2021-02-22] MEDS: METHOCARBAMOL 500 MG TABLET PO SCH ×4 (11:00→21:34)
[2021-02-22] MEDS: LIDOCAINE 5% TOPICAL PATCH TP SCH (11:30)
[2021-02-22 17:19] LABS: HEMOGLOBIN 14.3 GM/dL (11.7-16.9); MCH 32.5 pg (25.7-33.7); MCHC 34.1 g/dl (32.0-35.9); MEAN CELL VOLUME 95.2 fl (80-96); MEAN PLT VOLUME 8.1 fl (7.5-11.1); PLATELET COUNT 230 K/MM3 (134-434); RBC 4.41 M/mm3 (4.00-5.60); RDW 15.8 % (11.9-15.9); WHITE BLOOD COUNT 4.4 K/mm3 (4.0-10.0)
[2021-02-22] MEDS: ACETAMINOPHEN 325 MG TABLET (FP) PO PRN (17:41)
[2021-02-22] MEDS: LIDOCAINE PATCH REMOVAL MC SCH (21:33)
[2021-02-22] MEDS: THIAMINE HCL 100 MG TABLET (FP) PO SCH (21:33)
[2021-02-22] MEDS: MELATONIN 5 MG TABLETS PO SCH (21:33)
[2021-02-23] MEDS: GABAPENTIN 300 MG CAPSULE PO SCH ×3 (06:33→21:32)
[2021-02-23] MEDS: LISINOPRIL 20 MG TABLET PO SCH ×2 (09:38→21:32)
[2021-02-23] MEDS: PRENATAL VITAMINS W/ FOLIC ACID TABLET (FP) PO SCH (09:38)
[2021-02-23] MEDS: METHOCARBAMOL 500 MG TABLET PO SCH ×4 (09:38→21:32)
[2021-02-23] MEDS: LIDOCAINE 5% TOPICAL PATCH TP SCH (09:38)
[2021-02-23] MEDS: ACETAMINOPHEN 325 MG TABLET (FP) PO PRN ×2 (13:53→18:57)
[2021-02-23] MEDS ORDERED: PATIENT'S OWN MEDICATION (NON-FORMULARY) (Meloxicam [Mobic] 15 MG Tablet) PO SCH (17:00)
[2021-02-23] MEDS: THIAMINE HCL 100 MG TABLET (FP) PO SCH (21:32)
[2021-02-23] MEDS: MELATONIN 5 MG TABLETS PO SCH (21:32)
[2021-02-23] MEDS: LIDOCAINE PATCH REMOVAL MC SCH (21:38)
[2021-02-24] MEDS: GABAPENTIN 300 MG CAPSULE PO SCH (06:15)
[2021-02-24 06:44] VITALS: BP 142/92; PULSE 81; TEMP 97.3
[2021-02-24] MEDS ORDERED: IBUPROFEN 600 MG TABLET (FP) PO PRN ×2 (08:11→08:12)
[2021-02-24] MEDS: LIDOCAINE 5% TOPICAL PATCH TP SCH (09:26)
[2021-02-24] MEDS: METHOCARBAMOL 500 MG TABLET PO SCH (09:26)
[2021-02-24] MEDS: PRENATAL VITAMINS W/ FOLIC ACID TABLET (FP) PO SCH (09:26)
[2021-02-24] MEDS: LISINOPRIL 20 MG TABLET PO SCH (09:26)
== END 2021-02-24 09:38 | disposition home or self-care (01) | DRG 772 ==
LOC: YASAS 08:28 → Y3E 17:03
PROVIDERS: ADMIT Allergy & Immunology; ATTEND Allergy & Immunology
PROC: HZ42ZZZ Group Counseling for Substance Abuse Treatment, Cognitive-Behavioral (ICD-10-PCS; principal; 2021-02-21)
DX: F10.20 Alcohol dependence, uncomplicated (principal); F14.20 Cocaine dependence, uncomplicated; I10 Essential (primary) hypertension; M54.42 Lumbago with sciatica, left side; N40.0 Benign prostatic hyperplasia without lower urinary tract symptoms; Z90.79 Acquired absence of other genital organ(s)
CPT/HCPCS: 36415; 80053; 81003; 85027; 86780; C9803; U0003; U0005

== ENCOUNTER 2021-03-24 18:21 | Emergency (ER) | payer OTHER ==
[2021-03-24 18:32] VITALS: BP 124/84; PULSE 91; TEMP 98; BMI 28.5
== END 2021-03-24 20:10 | disposition home or self-care (01) ==
LOC: JERFT 18:21 → JER 18:21 → JERFT 20:10
DX: M25.532 Pain in left wrist (principal)
CPT/HCPCS: 73110-TC-LT-FY; 99283-25

== ENCOUNTER 2021-04-11 09:39 | Inpatient (IN) | payer OTHER ==
[2021-04-11 11:12] VITALS: BMI 28.5
[2021-04-11] MEDS ORDERED: MAG HYDROX/AL HYDROX/SIMETH 30 ML UNIT-DOSE CUP PO PRN (12:03)
[2021-04-11] MEDS ORDERED: BISMUTH SUBSALICYLATE 524 MG/30 ML PO PRN (12:03)
[2021-04-11] MEDS ORDERED: MAGNESIUM HYDROX 2400MG/30ML ORAL SUSPENSION 30 ML CUP PO PRN (12:03)
[2021-04-11] MEDS ORDERED: ACETAMINOPHEN 325 MG TABLET (FP) PO PRN ×2 (12:03)
[2021-04-11] MEDS ORDERED: MENTHOL/PHENOL 1 EACH UD MM PRN (12:03)
[2021-04-11] MEDS ORDERED: IBUPROFEN 400 MG TABLET (FP) PO PRN (12:03)
[2021-04-11] MEDS ORDERED: ONDANSETRON *ODT* 4 MG TABLET SL PRN (12:03)
[2021-04-11] MEDS ORDERED: MAGNESIUM CITRATE 300 ML BOTTLE PO PRN (12:03)
[2021-04-11] MEDS ORDERED: METHOCARBAMOL 500 MG TABLET PO PRN (12:03)
[2021-04-11] MEDS: GABAPENTIN 300 MG CAPSULE PO SCH ×2 (13:09→22:19)
[2021-04-11] MEDS: hydrOXYzine PAMOATE 25 MG CAPSULE (FP) PO SCH ×3 (13:09→22:19)
[2021-04-11] MEDS: THIAMINE HCL 100 MG TABLET (FP) PO SCH (22:19)
[2021-04-11] MEDS: MELATONIN 5 MG TABLETS PO SCH (22:19)
[2021-04-12] MEDS: GABAPENTIN 300 MG CAPSULE PO SCH ×3 (05:51→22:37)
[2021-04-12] MEDS: hydrOXYzine PAMOATE 25 MG CAPSULE (FP) PO SCH ×5 (05:52→22:37)
[2021-04-12] MEDS ORDERED: LORazepam 0.5 MG TABLET PO PRN (09:06)
[2021-04-12] MEDS: LISINOPRIL 20 MG TABLET PO SCH (10:18)
[2021-04-12] MEDS: PRENATAL VITAMINS W/ FOLIC ACID TABLET (FP) PO SCH (10:18)
[2021-04-12 10:23] LABS: HEMATOCRIT 42.7 % (35.4-49); HEMOGLOBIN 14.2 GM/dL (11.7-16.9); MCH 31.1 pg (25.7-33.7); MCHC 33.3 g/dl (32.0-35.9); MEAN CELL VOLUME 93.4 fl (80-96); PLATELET COUNT 192 K/MM3 (134-434); RBC 4.57 M/mm3 (4.00-5.60); RDW 14.5 % (11.9-15.9); WHITE BLOOD COUNT 3.9 K/mm3 (4.0-10.0)
[2021-04-12 10:34] LABS: ALBUMIN 3.2 g/dl (3.4-5.0); BLOOD UREA NITROGEN 13.9 mg/dL (7-18)
[2021-04-12 10:35] LABS: CALCIUM 8.6 mg/dL (8.5-10.1)
[2021-04-12 10:38] LABS: BILIRUBIN,TOTAL 0.8 mg/dL (0.2-1); TOT PROT 5.9 g/dl (6.4-8.2)
[2021-04-12] MEDS: THIAMINE HCL 100 MG TABLET (FP) PO SCH (22:37)
[2021-04-12] MEDS: MELATONIN 5 MG TABLETS PO SCH (22:37)
[2021-04-13] MEDS: GABAPENTIN 300 MG CAPSULE PO SCH (06:31)
[2021-04-13] MEDS: hydrOXYzine PAMOATE 25 MG CAPSULE (FP) PO SCH ×2 (06:31→09:18)
[2021-04-13] MEDS: LISINOPRIL 20 MG TABLET PO SCH (09:17)
[2021-04-13] MEDS: PRENATAL VITAMINS W/ FOLIC ACID TABLET (FP) PO SCH (09:18)
[2021-04-13 09:40] VITALS: BP 128/88; PULSE 99; TEMP 98.1
== END 2021-04-13 09:20 | disposition home or self-care (01) | DRG 774 ==
LOC: YASAS 09:39 → Y6N 11:31 → UNDOADMIN 11:31 → Y6N 13:00
PROVIDERS: ADMIT Allergy & Immunology; ATTEND Allergy & Immunology
PROC: HZ2ZZZZ Detoxification Services for Substance Abuse Treatment (ICD-10-PCS; principal; 2021-04-11)
DX: F10.230 Alcohol dependence with withdrawal, uncomplicated (principal); F14.20 Cocaine dependence, uncomplicated; I10 Essential (primary) hypertension; K21.9 Gastro-esophageal reflux disease without esophagitis; M54.42 Lumbago with sciatica, left side; G89.29 Other chronic pain; Z90.79 Acquired absence of other genital organ(s)
CPT/HCPCS: 36415; 80053; 85027; 86780; C9803; U0003; U0005

== ENCOUNTER 2021-05-22 12:20 | Inpatient (IN) | payer OTHER ==
[2021-05-22 13:15] VITALS: BMI 29.2
[2021-05-22] MEDS ORDERED: MAG HYDROX/AL HYDROX/SIMETH 30 ML UNIT-DOSE CUP PO PRN (14:17)
[2021-05-22] MEDS ORDERED: IBUPROFEN 400 MG TABLET (FP) PO PRN (14:17)
[2021-05-22] MEDS ORDERED: ACETAMINOPHEN 325 MG TABLET (FP) PO PRN ×2 (14:17)
[2021-05-22] MEDS ORDERED: MAGNESIUM HYDROX 2400MG/30ML ORAL SUSPENSION 30 ML CUP PO PRN (14:17)
[2021-05-22] MEDS ORDERED: MENTHOL/PHENOL 1 EACH UD MM PRN (14:17)
[2021-05-22] MEDS ORDERED: MAGNESIUM CITRATE 300 ML BOTTLE PO PRN (14:17)
[2021-05-22] MEDS ORDERED: ONDANSETRON *ODT* 4 MG TABLET SL PRN (14:17)
[2021-05-22] MEDS ORDERED: diazePAM 5 MG TABLET PO PRN (14:17)
[2021-05-22] MEDS ORDERED: BISMUTH SUBSALICYLATE 524 MG/30 ML PO PRN (14:17)
[2021-05-22] MEDS: diazePAM 5 MG TABLET PO SCH ×2 (17:39→22:50)
[2021-05-22] MEDS: hydrOXYzine PAMOATE 25 MG CAPSULE (FP) PO SCH ×2 (17:39→22:50)
[2021-05-22] MEDS ORDERED: LISINOPRIL 20 MG TABLET PO ONE (19:16)
[2021-05-22] MEDS ORDERED: PATIENT'S OWN MEDICATION (NON-FORMULARY) (Gabapentin [Neurontin] 600 MG Tablet) PO SCH (22:00)
[2021-05-22] MEDS: GABAPENTIN 300 MG CAPSULE PO SCH (22:50)
[2021-05-22] MEDS: THIAMINE HCL 100 MG TABLET (FP) PO SCH (22:51)
[2021-05-22] MEDS: MELATONIN 5 MG TABLETS PO SCH (22:51)
[2021-05-23] MEDS: diazePAM 5 MG TABLET PO SCH ×4 (07:20→22:47)
[2021-05-23] MEDS: GABAPENTIN 300 MG CAPSULE PO SCH ×3 (07:20→22:47)
[2021-05-23] MEDS: hydrOXYzine PAMOATE 25 MG CAPSULE (FP) PO SCH ×5 (07:20→22:47)
[2021-05-23] MEDS ORDERED: PATIENT'S OWN MEDICATION (NON-FORMULARY) (Lisinopril [Prinivil -] 40 MG Tablet) PO SCH (10:00)
[2021-05-23] MEDS: PRENATAL VITAMINS W/ FOLIC ACID TABLET (FP) PO SCH (10:38)
[2021-05-23] MEDS: LISINOPRIL 20 MG TABLET PO SCH (10:38)
[2021-05-23 15:01] LABS: HEMATOCRIT 43.5 % (35.4-49); HEMOGLOBIN 14.8 GM/dL (11.7-16.9); MCH 31.9 pg (25.7-33.7); MCHC 34.1 g/dl (32.0-35.9); MEAN CELL VOLUME 93.5 fl (80-96); MEAN PLT VOLUME 7.7 fl (7.5-11.1); PLATELET COUNT 221 10^3/uL (134-434); RBC 4.66 M/mm3 (4.00-5.60); RDW 14.7 % (11.9-15.9); WHITE BLOOD COUNT 3.7 K/mm3 (4.0-10.0)
[2021-05-23 15:07] LABS: ALBUMIN 3.6 g/dl (3.4-5.0); CALCIUM 8.7 mg/dL (8.5-10.1)
[2021-05-23 15:10] LABS: CREATININE 1.1 mg/dL (0.55-1.3)
[2021-05-23 15:12] LABS: BILIRUBIN,TOTAL 1.2 mg/dL (0.2-1); TOT PROT 6.7 g/dl (6.4-8.2)
[2021-05-23] MEDS: THIAMINE HCL 100 MG TABLET (FP) PO SCH (22:47)
[2021-05-23] MEDS: MELATONIN 5 MG TABLETS PO SCH (22:47)
[2021-05-24] MEDS: diazePAM 5 MG TABLET PO SCH ×3 (05:55→22:14)
[2021-05-24] MEDS: GABAPENTIN 300 MG CAPSULE PO SCH ×3 (05:55→22:15)
[2021-05-24] MEDS: hydrOXYzine PAMOATE 25 MG CAPSULE (FP) PO SCH ×2 (05:56→10:28)
[2021-05-24] MEDS: PRENATAL VITAMINS W/ FOLIC ACID TABLET (FP) PO SCH (10:27)
[2021-05-24] MEDS: LISINOPRIL 20 MG TABLET PO SCH (10:28)
[2021-05-24] MEDS: METHOCARBAMOL 500 MG TABLET PO PRN ×2 (10:28→22:16)
[2021-05-24] MEDS ORDERED: hydrOXYzine PAMOATE 25 MG CAPSULE (FP) PO PRN (12:28)
[2021-05-24] MEDS: MELATONIN 5 MG TABLETS PO SCH (22:14)
[2021-05-24] MEDS: THIAMINE HCL 100 MG TABLET (FP) PO SCH (22:15)
[2021-05-25] MEDS: diazePAM 5 MG TABLET PO SCH ×2 (05:47→17:31)
[2021-05-25] MEDS: GABAPENTIN 300 MG CAPSULE PO SCH ×3 (05:48→22:28)
[2021-05-25] MEDS: PRENATAL VITAMINS W/ FOLIC ACID TABLET (FP) PO SCH (09:51)
[2021-05-25] MEDS: LISINOPRIL 20 MG TABLET PO SCH (09:51)
[2021-05-25] MEDS: MELATONIN 5 MG TABLETS PO SCH (22:28)
[2021-05-25] MEDS: METHOCARBAMOL 500 MG TABLET PO PRN (22:30)
[2021-05-25] MEDS: THIAMINE HCL 100 MG TABLET (FP) PO SCH (22:31)
[2021-05-26] MEDS: GABAPENTIN 300 MG CAPSULE PO SCH (05:34)
[2021-05-26] MEDS ORDERED: diazePAM 5 MG TABLET PO ONE (06:00)
[2021-05-26 08:46] VITALS: BP 124/77; PULSE 65; TEMP 96.9
[2021-05-26] MEDS: PRENATAL VITAMINS W/ FOLIC ACID TABLET (FP) PO SCH (09:19)
[2021-05-26] MEDS: LISINOPRIL 20 MG TABLET PO SCH (09:19)
== END 2021-05-26 09:34 | disposition other institution (70) | DRG 774 ==
LOC: YASAS 12:20 → Y3N 15:13
PROVIDERS: ADMIT Allergy & Immunology; ATTEND Allergy & Immunology
PROC: HZ2ZZZZ Detoxification Services for Substance Abuse Treatment (ICD-10-PCS; principal; 2021-05-22)
DX: F10.230 Alcohol dependence with withdrawal, uncomplicated (principal); F14.20 Cocaine dependence, uncomplicated; I10 Essential (primary) hypertension; K21.9 Gastro-esophageal reflux disease without esophagitis; B18.2 Chronic viral hepatitis C; M54.40 Lumbago with sciatica, unspecified side; G89.29 Other chronic pain; Z90.79 Acquired absence of other genital organ(s)
CPT/HCPCS: 36415; 80053; 85027; 86780; C9803; U0003; U0005

== ENCOUNTER 2023-01-12 19:52 | Emergency (ER) | payer OTHER ==
[2023-01-12 20:08] VITALS: BP 128/89; PULSE 86; RESP 18; TEMP 98.2; BMI 28.3
[2023-01-12] MEDS ORDERED: FLUORESCEIN NA 1 EA STRIP OS ONE (20:44)
[2023-01-12] MEDS ORDERED: TETRACAINE 0.5% OPHTH SOLN 2 ML BOTTLE ONE (20:44)
[2023-01-12] MEDS ORDERED: FLUORESCEIN NA 1 EA STRIP ONE (20:44)
== END 2023-01-12 20:56 | disposition home or self-care (01) ==
LOC: JERFT 19:52
DX: H57.89 Other specified disorders of eye and adnexa (principal)
CPT/HCPCS: 99283-25

== ENCOUNTER 2024-12-12 03:50 | Day surgery (SDC) | payer OTHER ==
[2024-12-09 13:50] VITALS: BMI 32.0
[2024-12-12] MEDS ORDERED: BUPIVACAINE HCL/PF 0.5% (5MG/ML) 10 ML VIAL ONE (12:38)
[2024-12-12] MEDS ORDERED: LIDOCAINE HCL 1%, 10 MG/ML (20ML VIAL) ONE (12:38)
[2024-12-12] MEDS ORDERED: BENZOIN/ALOE VERA/STORAX/TOLU 58 ML BOTTLE ONE (12:38)
[2024-12-12] MEDS: LIDOCAINE HCL 1%, 10 MG/ML (50 mL VIAL) INF ONE ×2 (12:48→13:28)
[2024-12-12] MEDS: BUPIVACAINE HCL/PF 0.5% (5 MG/ML) 30 ML VIAL IJ ONE ×2 (12:49→13:28)
[2024-12-12] MEDS ORDERED: PROPOFOL 20 ML ONE (13:18)
[2024-12-12] MEDS ORDERED: MIDAZOLAM HCL 2 MG/2 ML SINGLE DOSE VIAL ONE (13:20)
[2024-12-12 14:38] VITALS: RESP 16; TEMP 97.6
[2024-12-12 14:59] VITALS: BP 118/70; PULSE 70
== END 2024-12-12 15:30 | disposition home or self-care (01) ==
LOC: JASU-SURG 03:50
PROVIDERS: ATTEND Podiatrist Foot & Ankle Surgery
PROC: 0SS Lower Joints, Reposition (ICD-10-PCS; principal; 2024-12-12 13:00)
DX: M20.42 Other hammer toe(s) (acquired), left foot (principal); L89.896 Pressure-induced deep tissue damage of other site
CPT/HCPCS: 73630-TC-LT; 88305-TC; 88311-TC